=== PATIENT | male | born 1945 ===

== ENCOUNTER 2022-03-23 17:59 | Inpatient (IN) | payer MEDICARE ==
[2022-03-24 01:27] LABS: Basophils # (Auto) 0.1 K/mm3 (0.0-0.1); Basophils % (Auto) 0.6 % (0.0-1.8); Eosinophils # (Auto) 0.4 K/mm3 (0.0-0.4); Eosinophils % (Auto) 4.9 % (0.0-4.3); Hematocrit 32.3 % (35.5-45.6); Hemoglobin 10.6 gm/dl (11.8-15.2); Lymphocytes # (Auto) 1.5 K/mm3 (1.2-5.4); Lymphocytes % (Auto) 16.5 % (13.4-35.0); Mean Corpuscular HGB Conc 33 % (32-34); Mean Corpuscular Volume 93 fl (84-94); Monocytes # (Auto) 0.6 K/mm3 (0.0-0.8); Monocytes % (Auto) 6.9 % (0.0-7.3); Platelet Count 200 K/mm3 (140-440); Red Blood Count 3.49 M/mm3 (3.65-5.03); Red Cell Distribution Width 13.6 % (13.2-15.2)
[2022-03-24 01:58] LABS: Hepatitis B Surface Antigen Non-Reactive (Negative); Hepatitis C Virus Antibody Non-Reactive (NonReactive)
[2022-03-24 04:50] LABS: Albumin 3.2 g/dL (3.9-5); Calcium 8.1 mg/dL (8.4-10.2); Chol/HDL Ratio 3.42 %
--- NOTE | 2022-03-24 08:44 | History and Physical Report ---
History of Present Illness Date of examination: 03/24/22 Date of admission: 03/23/22 23:48 Chief complaint: Diabetes, HTN, Hyperlipidemia History of present illness: Patient is a 76 year old male with hx of Depression, CKD, CAD, dementia, GERD, hemiplegia as a late effect of CVA, insomnia, MRSA in the past, vascular dementia, and dementia presented from the jail due to hypotension. Further documentation shows that the patient had voiced opinion of killing himself. Per chart review the patient was tearful and crying throughout her initial assessment. Patient has a further history of diabetes mellitus, hyperlipidemia, hypertension. Were asked to assist in evaluation of the patient due to underlying medical condition. During my examination he is calm. He denies mentioning about suicidal ideation to anyone. He denies any chest pain nausea vomiting or diarrhea. He denies any fever. Past History Past Medical History: diabetes, hypertension, hyperlipidemia, stroke Past Surgical History: Other (Leg surgery) Social history: full code, other (Lives in a jail) Family history: other Medications and Allergies Allergies Allergy/AdvReac Type Severity Reaction Status Date / Time No Known Allergies Allergy Verified 03/24/22 00:00 Home Medications Medication Instructions Recorded Confirmed Last Taken Type Acetaminophen [Acetaminophen ER] 650 mg PO Q4HR PRN 03/24/22 03/24/22 Unknown History Aspirin EC [Halfprin EC] 81 mg PO QDAY 03/24/22 03/24/22 Unknown History Clopidogrel [Plavix] 75 mg PO QDAY 03/24/22 03/24/22 Unknown History Doxazosin [Cardura] 4 mg PO QDAY 03/24/22 03/24/22 Unknown History Ergocalciferol [Vitamin D2] 1 cap PO QWEEK 03/24/22 03/24/22 Unknown History Escitalopram Oxalate [Lexapro] 20 mg PO DAILY 03/24/22 03/24/22 Unknown History Hydralazine HCl 50 mg PO TID 03/24/22 03/24/22 Unknown History Insulin Aspart (Nf) [NovoLOG 0 units SQ AC PRN 03/24/22 03/24/22 Unknown History Flexpen] Insulin Detemir [Levemir Flextouch] 22 unit SQ HS 03/24/22 03/24/22 Unknown History Loperamide [Imodium] 2 mg PO Q6HR PRN 03/24/22 03/24/22 Unknown History Magnesium Hydroxide [Milk of 400 mg PO DAILY PRN 03/24/22 03/24/22 Unknown History Magnesia] Metoprolol Xl [Metoprolol 100 mg PO QDAY 03/24/22 03/24/22 Unknown History SUCCINATE ER TAB] Omeprazole 40 mg PO DAILY 03/24/22 03/24/22 Unknown History Ondansetron [Zofran Odt] 4 mg PO Q8HR PRN 03/24/22 03/24/22 Unknown History Polyethylene Glycol 3350 17 gm PO DAILY 03/24/22 03/24/22 Unknown History [Powderlax] amLODIPine [Norvasc] 10 mg PO DAILY 03/24/22 03/24/22 Unknown History cloNIDine-TTS PATCH [Catapres-Tts 1 patch TD Q7D 03/24/22 03/24/22 Unknown History 0.3mg Patch] Review of Systems All systems: negative Constitutional: no weight loss, no weight gain Cardiovascular: no chest pain, no orthopnea, no palpitations, no rapid/irregular heart beat, no claudication, no phlebitis, no leg edema Respiratory: no hemoptysis, no shortness of breath, no dyspnea on exertion, no pleurisy Gastrointestinal: no nausea, no diarrhea, no constipation, no change in bowel h abits Genitourinary Male: no discharge, no urinary hesitancy, no incontinence Musculoskeletal: no shooting arm pain, no low back pain, no shooting leg pain Integumentary: no pruritis, no sores, no jaundice Exam - Physical Exam Narrative exam: VITAL SIGNS: Reviewed. GENERAL: The patient appears normally developed, Vital signs as documented. HEAD: No signs of head trauma. EYES: Pupils are equal. Extraocular motions intact. EARS: Hearing grossly intact. MOUTH: Oropharynx is normal. NECK: No adenopathy, no JVD. CHEST: Chest with clear breath sounds bilaterally. No wheezes, rales, or rhonchi. CARDIAC: Regular rate and rhythm. S1 and S2, without murmurs, gallops, or rubs. VASCULAR: No Edema. Peripheral pulses normal and equal in all extremities. ABDOMEN: Soft, non tender and non distended. No rebound or guarding, and no masses palpated. Bowel Sounds normal. MUSCULOSKELETAL: Good range of motion of all major joints. Extremities without clubbing, cyanosis or edema. NEUROLOGIC EXAM: Alert and oriented x 3 No focal sensory or strength deficits. Speech normal. Follows commands. PSYCHIATRIC: Mood flat. SKIN: detail exam as documented in skin assessment - Constitutional Vitals: Temp Pulse Resp BP Pulse Ox 98.0 F 73 16 136/69 98 03/23/22 21:57 03/23/22 21:57 03/23/22 21:57 03/23/22 21:57 03/23/22 21:57 Results - Labs CBC & Chem 7: 03/24/22 00:47 03/24/22 00:47 Labs: Laboratory Last Values WBC 9.1 K/mm3 (4.5-11.0) 03/24/22 00:47 RBC 3.49 M/mm3 (3.65-5.03) L 03/24/22 00:47 Hgb 10.6 gm/dl (11.8-15.2) L 03/24/22 00:47 Hct 32.3 % (35.5-45.6) L 03/24/22 00:47 MCV 93 fl (84-94) 03/24/22 00:47 MCH 30 pg (28-32) 03/24/22 00:47 MCHC 33 % (32-34) 03/24/22 00:47 RDW 13.6 % (13.2-15.2) 03/24/22 00:47 Plt Count 200 K/mm3 (140-440) 03/24/22 00:47 Lymph % (Auto) 16.5 % (13.4-35.0) 03/24/22 00:47 [place] % (Auto) 6.9 % (0.0-7.3) 03/24/22 00:47 Eos % (Auto) 4.9 % (0.0-4.3) H 03/24/22 00:47 Baso % (Auto) 0.6 % (0.0-1.8) 03/24/22 00:47 Lymph # (Auto) 1.5 K/mm3 (1.2-5.4) 03/24/22 00:47 [place] # (Auto) 0.6 K/mm3 (0.0-0.8) 03/24/22 00:47 Eos # (Auto) 0.4 K/mm3 (0.0-0.4) 03/24/22 00:47 Baso # (Auto) 0.1 K/mm3 (0.0-0.1) 03/24/22 00:47 Seg Neutrophils % 71.1 % (40.0-70.0) H 03/24/22 00:47 Seg Neutrophils # 6.5 K/mm3 (1.8-7.7) 03/24/22 00:47 Sodium 140 mmol/L (137-145) 03/24/22 00:47 Potassium 4.5 mmol/L (3.6-5.0) 03/24/22 00:47 Chloride 104.2 mmol/L (98-107) 03/24/22 00:47 Carbon Dioxide 19 mmol/L (22-30) L 03/24/22 00:47 Anion Gap 21 mmol/L 03/24/22 00:47 BUN 58 mg/dL (9-20) H 03/24/22 00:47 Creatinine 4.5 mg/dL (0.8-1.3) H 03/24/22 00:47 Estimated GFR 13 ml/min 03/24/22 00:47 BUN/Creatinine Ratio 13 % 03/24/22 00:47 Glucose 255 mg/dL (75-100) H 03/24/22 00:47 POC Glucose 267 mg/dL (70-105) H 03/24/22 07:21 Hemoglobin A1c 6.5 % (4-6) H 03/24/22 00:47 Calcium 8.1 mg/dL (8.4-10.2) L 03/24/22 00:47 Total Bilirubin 0.20 mg/dL (0.1-1.2) 03/24/22 00:47 AST 11 units/L (5-40) 03/24/22 00:47 ALT 8 units/L (7-56) 03/24/22 00:47 Alkaline Phosphatase 60 units/L (35-129) 03/24/22 00:47 Total Protein 5.5 g/dL (6.3-8.2) L 03/24/22 00:47 Albumin 3.2 g/dL (3.9-5) L 03/24/22 00:47 Albumin/Globulin Ratio 1.4 % 03/24/22 00:47 Triglycerides 157 mg/dL (2-149) H 03/24/22 00:47 Cholesterol 96 mg/dL (50-199) 03/24/22 00:47 LDL Cholesterol Direct 38 mg/dL (50-130) L 03/24/22 00:47 HDL Cholesterol 28 mg/dL (40-59) L 03/24/22 00:47 Cholesterol/HDL Ratio 3.42 % 03/24/22 00:47 TSH 2.970 mlU/mL (0.270-4.200) 03/24/22 00:47 Hep Bs Antigen Non-reactive (Negative) 03/24/22 00:47 Hep B Core IgM Ab Non-reactive (NonReactive) 03/24/22 00:47 Hepatitis C Antibody Non-reactive (NonReactive) 03/24/22 00:47 Carpenter/IV: Voiding Method Incontinent Assessment and Plan Assessment and plan: Patient is a 76 year old male with hx of Depression, CKD, CAD, dementia, GERD, hemiplegia as a late effect of CVA, diabetes mellitus, insomnia, MRSA in the past, vascular dementia, and dementia presented from the jail due to hypotension. Further documentation shows that the patient had voiced opinion of killing himself. Per chart review the patient was tearful and crying throughout her initial assessment. Patient has a further history of diabetes mellitus, hyperlipidemia, hypertension. Were asked to assist in evaluation of the patient due to underlying medical condition. During my examination he is calm. He denies mentioning about suicidal ideation to anyone. He denies any chest pain nausea vomiting or diarrhea. He denies any fever. Patient is [place]ander-speaking Review of CT brain at outside facility shows no acute pathology review of CT abdomen and pelvis shows no acute pathology review of chest x-ray shows no acute pathology except for noted perihilar airspace disease most prominent in the left hilar region Hypertension Suicidal ideation Diabetes CAD GERD CKD Depression Prior history of stroke Plan Continue patient on appropriate home medication including Plavix Protonix metoprolol amlodipine and aspirin. Monitor H&H periodicall Continue diabetic management and monitor blood sugar I have resumed his home blood sugar medications and have also included sliding scale coverage as his blood sugars over 200 at this time. Psych related management per the psych team Fall precautions PPI DVT and GI prophylaxis We will continue to follow with your and his new information becomes available more therapeutic or diagnostic changes more diagnostic or therapeutic changes may need to be implemented Advance Directives: Yes Plan of care discussed with patient/family: Yes
[2022-03-24] MEDS ORDERED: MAGNESIUM HYDROXIDE (MOM) ORAL LIQD UDC PO PRN (09:00)
[2022-03-24] MEDS ORDERED: ONDANSETRON 4 MG ODT TAB PO PRN (09:00)
[2022-03-24] MEDS ORDERED: DEXTROSE 50% IN WATER (25GM) 50 ML SYRINGE IV PRN (09:30)
[2022-03-24] MEDS ORDERED: NON-FORMULARY EACH (Omeprazole [Omeprazole] 40 MG Capsule.Dr) PO SCH (10:00)
[2022-03-24] MEDS ORDERED: PANTOPRAZOLE 40 MG TAB PO SCH (10:00)
[2022-03-24] MEDS: POLYETHYLENE GLYCOL 3350 17 GM POWDER PO SCH (10:32)
[2022-03-24] MEDS: METOPROLOL SUCCINATE XL 100 MG TAB PO SCH (10:33)
[2022-03-24] MEDS: ASPIRIN EC 81 MG TAB PO SCH (10:33)
[2022-03-24] MEDS: DOXAZOSIN 4 MG TAB PO SCH (10:33)
[2022-03-24] MEDS: CLOPIDOGREL 75 MG TAB PO SCH (10:33)
[2022-03-24] MEDS: amLODIPine 10 MG TAB PO SCH (10:35)
[2022-03-24] MEDS: PANTOPRAZOLE 40 MG TAB PO SCH (10:36)
[2022-03-24] MEDS ORDERED: NON-FORMULARY EACH (Insulin Aspart (Nf) 100 UNIT/ML Insuln.Pen) SQ PRN (11:48)
[2022-03-24] MEDS ORDERED: NON-FORMULARY EACH (Acetaminophen [Acetaminophen Er] 650 MG Tablet.Er) PO PRN (11:48)
[2022-03-24] MEDS ORDERED: NON-FORMULARY EACH (Escitalopram Oxalate [Lexapro] 20 MG Tablet) PO SCH (12:00)
[2022-03-24] MEDS: INSULIN LISPRO 100 UNIT/ML SUB-Q SCH ×3 (12:47→21:43)
[2022-03-24] MEDS ORDERED: LOPERAMIDE 2 MG CAP PO PRN (14:00)
[2022-03-24] MEDS ORDERED: NON-FORMULARY EACH (Hydralazine Hcl [Hydralazine Hcl] 50 MG Tablet) PO SCH (14:00)
[2022-03-24] MEDS ORDERED: ACETAMINOPHEN 325 MG TAB PO PRN (14:00)
[2022-03-24] MEDS: ESCITALOPRAM 10 MG TAB PO SCH (14:29)
[2022-03-24] MEDS: hydrALAZINE 25 MG TAB PO SCH ×2 (14:29→20:35)
[2022-03-24] MEDS: INSULIN GLARGINE 100 UNITS/ML SUB-Q SCH (21:42)
[2022-03-24] MEDS ORDERED: NON-FORMULARY EACH (Insulin Detemir [Levemir Flextouch] 100 UNIT/ML Insuln.Pen) SQ SCH ×2 (22:00)
--- NOTE | 2022-03-24 22:20 | History and Physical Report ---
GP History & Physical - History of Present Illness Date of admission: 03/23/22 Date of Examination: 03/24/22 Reason for Admission: Danger to self, Failure of Outpatient Treatment, Severe anxiety/depression History of Present Illness: HPI: Patient was taken to the ED from half-way due to hypertension and made a comment to nurse and EMS that he wanted to kill himself. He told the doctor in ED that is unhappy where he is living. The patient was seen today. He is lying in bed awake. He is calm. He appears withdrawn. When asked was he depressed, the patient nodded his head. He denies SI/HI or hallucinations. PSYCHIATRIC HISTORY: Unable to assess PAST MEDICAL HISTORY: None reported or document Family Psychiatric History: None reported or documented SOCIAL HISTORY Unable to obtain REVIEW OF SYSTEMS Unable to obtain MENTAL STATUS EXAMINATION Unable to obtain Assessment (1) Major Depressive Disorder Current Visit: Yes Status: Acute TREATMENT PLAN Patient admitted for inpatient psychiatric evaluation, medication adjustment and close monitoring The patient's behavior, mood, sleep and appetite will be closely monitored. Patient enrolled in individual and group therapeutic sessions and encouraged to attend. Patient provided with a safe and structured environment. Patient's physical health needs will be addressed by the Hospitalist. Ho spitalist Consulted Labs including CBC, CMP, Lipid profile and Hemoglobin A1C levels ordered for baseline reference Restarted home meds Social Assessment will be completed and the Lock Plater will work with patient and family to ensure a suitable and safe disposition Medication adjustment will be made as clinically indicated Usual Wellness [employer]/Preservation: - Start Trazodone 50 mg po QHS & 50 mg po QHS PRN between 10 PM & 2 AM for insomnia - Start Melatonin 5 mg po QHS to promote circadian rhythm - Start [place]-3 for brain health, reduce impulsivity, and as adjunctive treatment for mood disorder, continue upon discharge given overall benefits. - Start B1 prophylaxis with 200 mg po for 5 days The patient agreed on the treatment plan, understood the risk, benefit, alternative treatment, potential consequence of no treatment, and gave informed consent. Estimated days: 7 Post hospital care: primary care provider, psychiatric provider Case staffed with Dr. Damon Legal Status: Voluntary Reaction to Hospitalization: Accepting Medications and Allergies Allergies Allergy/AdvReac Type Severity Reaction Status Date / Time No Known Allergies Allergy Verified 03/24/22 00:00 Home Medications Medication Instructions Recorded Confirmed Last Taken Type Acetaminophen [Acetaminophen ER] 650 mg PO Q4HR PRN 03/24/22 03/24/22 Unknown History Aspirin EC [Halfprin EC] 81 mg PO QDAY 03/24/22 03/24/22 Unknown History Clopidogrel [Plavix] 75 mg PO QDAY 03/24/22 03/24/22 Unknown History Doxazosin [Cardura] 4 mg PO QDAY 03/24/22 03/24/22 Unknown History Ergocalciferol [Vitamin D2] 1 cap PO QWEEK 03/24/22 03/24/22 Unknown History Escitalopram Oxalate [Lexapro] 20 mg PO DAILY 03/24/22 03/24/22 Unknown History Hydralazine HCl 50 mg PO TID 03/24/22 03/24/22 Unknown History Insulin Aspart (Nf) [NovoLOG 0 units SQ AC PRN 03/24/22 03/24/22 Unknown History Flexpen] Insulin Detemir [Levemir Flextouch] 22 unit SQ HS 03/24/22 03/24/22 Unknown History Loperamide [Imodium] 2 mg PO Q6HR PRN 03/24/22 03/24/22 Unknown History Magnesium Hydroxide [Milk of 400 mg PO DAILY PRN 03/24/22 03/24/22 Unknown History Magnesia] Metoprolol Xl [Metoprolol 100 mg PO QDAY 03/24/22 03/24/22 Unknown History SUCCINATE ER TAB] Omeprazole 40 mg PO DAILY 03/24/22 03/24/22 Unknown History Ondansetron [Zofran Odt] 4 mg PO Q8HR PRN 03/24/22 03/24/22 Unknown History Polyethylene Glycol 3350 17 gm PO DAILY 03/24/22 03/24/22 Unknown History [Powderlax] amLODIPine [Norvasc] 10 mg PO DAILY 03/24/22 03/24/22 Unknown History cloNIDine-TTS PATCH [Catapres-Tts 1 patch TD Q7D 03/24/22 03/24/22 Unknown History 0.3mg Patch] Active Meds: Active Medications Acetaminophen (Acetaminophen 325 Mg Tab) 650 mg PO Q4H PRN PRN Reason: Pain, Moderate (4-6) Amlodipine Besylate (Amlodipine 10 Mg Tab) 10 mg PO DAILY LIBERTAD Last Admin: 03/24/22 10:35 Dose: 10 mg Aspirin (Aspirin Ec 81 Mg Tab) 81 mg PO QDAY ON LICENSE OF [facility] Last Admin: 03/24/22 10:33 Dose: 81 mg Clonidine HCl (Clonidine Tts 0.3 Mg/24 Hr Patch) 0.3 mg TD Sa ON LICENSE OF [facility] Clopidogrel Bisulfate (Clopidogrel 75 Mg Tab) 75 mg PO QDAY ON LICENSE OF [facility] Last Admin: 03/24/22 10:33 Dose: 75 mg Dextrose (Dextrose 50% In Water (25gm) 50 Ml Syringe) 50 ml IV Q30MIN PRN; Protocol PRN Reason: Hypoglycemia Doxazosin Mesylate (Doxazosin 4 Mg Tab) 4 mg PO QDAY ON LICENSE OF [facility] Last Admin: 03/24/22 10:33 Dose: 4 mg Ergocalciferol (Ergocalciferol (Vit D2) 50,000 Unit Cap) 50,000 unit PO [facility] Escitalopram Oxalate (Escitalopram 10 Mg Tab) 20 mg PO DAILY ON LICENSE OF [facility] Last Admin: 03/24/22 14:29 Dose: 20 mg Hydralazine HCl (Hydralazine 25 Mg Tab) 50 mg PO TID ON LICENSE OF [facility] Last Admin: 03/24/22 20:35 Dose: 50 mg Insulin Glargine (Insulin Glargine 100 Units/Ml) 22 units SUB-Q QHS ON LICENSE OF [facility] Last Admin: 03/24/22 21:42 Dose: 22 units Insulin Human Lispro (Insulin Lispro 100 Unit/Ml) 0 unit SUB-Q ACHS ON LICENSE OF [facility]; Protocol Last Admin: 03/24/22 21:43 Dose: Not Given Loperamide HCl (Loperamide 2 Mg Cap) 2 mg PO Q6H PRN PRN Reason: Diarrhea Magnesium Hydroxide (Magnesium Hydroxide (Mom) Oral Liqd Udc) 30 ml PO DAILY PRN PRN Reason: Constipation Metoprolol Succinate (Metoprolol Succinate Xl 100 Mg Tab) 100 mg PO QDAY ON LICENSE OF [facility] Last Admin: 03/24/22 10:33 Dose: 100 mg Ondansetron HCl (Ondansetron 4 Mg Odt Tab) 4 mg PO Q8H PRN PRN Reason: Nausea Pantoprazole Sodium (Pantoprazole 40 Mg Tab) 40 mg PO QDAC ON LICENSE OF [facility] Last Admin: 03/24/22 10:36 Dose: 40 mg Polyethylene Glycol (Polyethylene Glycol 3350 17 Gm Powder) 17 gm PO DAILY ON LICENSE OF [facility] Last Admin: 03/24/22 10:32 Dose: 17 gm Results - Results Labs/Vitals: Laboratory Last Values WBC 9.1 K/mm3 (4.5-11.0) 03/24/22 00:47 RBC 3.49 M/mm3 (3.65-5.03) L 03/24/22 00:47 Hgb 10.6 gm/dl (11.8-15.2) L 03/24/22 00:47 Hct 32.3 % (35.5-45.6) L 03/24/22 00:47 MCV 93 fl (84-94) 03/24/22 00:47 MCH 30 pg (28-32) 03/24/22 00:47 MCHC 33 % (32-34) 03/24/22 00:47 RDW 13.6 % (13.2-15.2) 03/24/22 00:47 Plt Count 200 K/mm3 (140-440) 03/24/22 00:47 Lymph % (Auto) 16.5 % (13.4-35.0) 03/24/22 00:47 [place] % (Auto) 6.9 % (0.0-7.3) 03/24/22 00:47 Eos % (Auto) 4.9 % (0.0-4.3) H 03/24/22 00:47 Baso % (Auto) 0.6 % (0.0-1.8) 03/24/22 00:47 Lymph # (Auto) 1.5 K/mm3 (1.2-5.4) 03/24/22 00:47 [place] # (Auto) 0.6 K/mm3 (0.0-0.8) 03/24/22 00:47 Eos # (Auto) 0.4 K/mm3 (0.0-0.4) 03/24/22 00:47 Baso # (Auto) 0.1 K/mm3 (0.0-0.1) 03/24/22 00:47 Seg Neutrophils % 71.1 % (40.0-70.0) H 03/24/22 00:47 Seg Neutrophils # 6.5 K/mm3 (1.8-7.7) 03/24/22 00:47 Sodium 140 mmol/L (137-145) 03/24/22 00:47 Potassium 4.5 mmol/L (3.6-5.0) 03/24/22 00:47 Chloride 104.2 mmol/L (98-107) 03/24/22 00:47 Carbon Dioxide 19 mmol/L (22-30) L 03/24/22 00:47 Anion Gap 21 mmol/L 03/24/22 00:47 BUN 58 mg/dL (9-20) H 03/24/22 00:47 Creatinine 4.5 mg/dL (0.8-1.3) H 03/24/22 00:47 Estimated GFR 13 ml/min 03/24/22 00:47 BUN/Creatinine Ratio 13 % 03/24/22 00:47 Glucose 255 mg/dL (75-100) H 03/24/22 00:47 POC Glucose 205 mg/dL (70-105) H 03/24/22 16:21 Hemoglobin A1c 6.5 % (4-6) H 03/24/22 00:47 Calcium 8.1 mg/dL (8.4-10.2) L 03/24/22 00:47 Total Bilirubin 0.20 mg/dL (0.1-1.2) 03/24/22 00:47 AST 11 units/L (5-40) 03/24/22 00:47 ALT 8 units/L (7-56) 03/24/22 00:47 Alkaline Phosphatase 60 units/L (35-129) 03/24/22 00:47 Total Protein 5.5 g/dL (6.3-8.2) L 03/24/22 00:47 Albumin 3.2 g/dL (3.9-5) L 03/24/22 00:47 Albumin/Globulin Ratio 1.4 % 03/24/22 00:47 Triglycerides 157 mg/dL (2-149) H 03/24/22 00:47 Cholesterol 96 mg/dL (50-199) 03/24/22 00:47 LDL Cholesterol Direct 38 mg/dL (50-130) L 03/24/22 00:47 HDL Cholesterol 28 mg/dL (40-59) L 03/24/22 00:47 Cholesterol/HDL Ratio 3.42 % 03/24/22 00:47 TSH 2.970 mlU/mL (0.270-4.200) 04 00:47 Hep Bs Antigen Non-reactive (Negative) 03/24/22 00:47 Hep B Core IgM Ab Non-reactive (NonReactive) 03/24/22 00:47 Hepatitis C Antibody Non-reactive (NonReactive) 03/24/22 00:47 Last Vital Signs Temp 97.6 F 03/24/22 09:56 Pulse 66 03/24/22 20:35 Resp 18 03/24/22 09:56 BP 154/71 03/24/22 20:35 Pulse Ox 97 03/24/22 14:23 Physical Examination - Constitutional Vitals: Vital Signs Temp Pulse Resp BP Pulse Ox 97.6 F 66 18 154/71 97 03/24/22 09:56 03/24/22 20:35 03/24/22 09:56 03/24/22 20:35 03/24/22 14:23 Temperature -Last 24 Hours Temperature 97.6 F Mental Status Exam - Vital signs Last Vital Signs Temp 97.6 F 03/24/22 09:56 Pulse 66 03/24/22 20:35 Resp 18 03/24/22 09:56 BP 154/71 03/24/22 20:35 Pulse Ox 97 03/24/22 14:23 Physician Certification - Certification Statement Physician Certification Statement: This is an acknowledgement statement that ALINA SOMMER is a 76 year old M who requires inpatient psychiatric admission for treatment which could reasonably be expected to improve the patient's condition for Estimated period of time patient will need to remain in the hospital: [ ] Plan for post-hospital care: [ ]
[2022-03-25] MEDS: INSULIN LISPRO 100 UNIT/ML SUB-Q SCH ×4 (07:46→21:30)
[2022-03-25] MEDS: PANTOPRAZOLE 40 MG TAB PO SCH (08:30)
[2022-03-25] MEDS: hydrALAZINE 25 MG TAB PO SCH ×3 (08:30→20:23)
[2022-03-25] MEDS ORDERED: ERGOCALCIFEROL (VIT D2) 50,000 UNIT CAP PO SCH (10:00)
[2022-03-25] MEDS: amLODIPine 10 MG TAB PO SCH (10:28)
[2022-03-25] MEDS: ASPIRIN EC 81 MG TAB PO SCH (10:28)
[2022-03-25] MEDS: ESCITALOPRAM 10 MG TAB PO SCH (10:28)
[2022-03-25] MEDS: CLOPIDOGREL 75 MG TAB PO SCH (10:28)
[2022-03-25] MEDS: POLYETHYLENE GLYCOL 3350 17 GM POWDER PO SCH (10:28)
[2022-03-25] MEDS: DOXAZOSIN 4 MG TAB PO SCH (10:28)
[2022-03-25] MEDS: METOPROLOL SUCCINATE XL 100 MG TAB PO SCH (10:28)
--- NOTE | 2022-03-25 11:14 | Progress Note ---
Assessment and Plan Assessment and plan: Patient is a 76 year old male with hx of Depression, CKD, CAD, dementia, GERD, hemiplegia as a late effect of CVA, diabetes mellitus, insomnia, MRSA in the past, vascular dementia, and dementia presented from the [facility] due to hypotension. Further documentation shows that the patient had voiced opinion of killing himself. Per chart review the patient was tearful and crying throughout her initial assessment. Patient has a further history of diabetes mellitus, hyperlipidemia, hypertension. Were asked to assist in evaluation of the patient due to underlying medical condition. During my examination he is calm. He denies mentioning about suicidal ideation to anyone. He denies any chest pain nausea vomiting or diarrhea. He denies any fever. Patient is Maori-speaking Review of CT brain at outside facility shows no acute pathology review of CT abdomen and pelvis shows no acute pathology review of chest x-ray shows no acute pathology except for noted perihilar airspace disease most prominent in the left hilar region Hypertension Suicidal ideation Diabetes CAD GERD CKD Depression Prior history of stroke Plan 03/25: Patient seen and examined, clinically stable. Check H/H in am Continue patient on appropriate home medication including Plavix Protonix metoprolol amlodipine and aspirin. Monitor H&H periodically Continue diabetic management and monitor blood sugar I have resumed his home blood sugar medications and have also included sliding scale coverage as his blood sugars over 200 at this time. Psych related management per the psych team Fall precautions PPI DVT and GI prophylaxis We will continue to follow with your and his new information becomes available more therapeutic or diagnostic changes more diagnostic or therapeutic changes may need to be implemented History Interval history: Patient seen and examined, resting comfortable Hospitalist Physical - Physical exam Narrative exam: VITAL SIGNS: Reviewed. GENERAL: The patient appears normally developed, Vital signs as documented. HEAD: No signs of head trauma. EYES: Pupils are equal. Extraocular motions intact. EARS: Hearing grossly intact. MOUTH: Oropharynx is normal. NECK: No adenopathy, no JVD. CHEST: Chest with clear breath sounds bilaterally. No wheezes, rales, or rhon chi. CARDIAC: Regular rate and rhythm. S1 and S2, without murmurs, gallops, or rubs. VASCULAR: No Edema. Peripheral pulses normal and equal in all extremities. ABDOMEN: Soft, non tender and non distended. No rebound or guarding, and no masses palpated. Bowel Sounds normal. MUSCULOSKELETAL: Good range of motion of all major joints. Extremities without clubbing, cyanosis or edema. NEUROLOGIC EXAM: Alert and oriented x 3 No focal sensory or strength deficits. Speech normal. Follows commands. PSYCHIATRIC: Mood flat. SKIN: detail exam as documented in skin assessment - Constitutional Vitals: Temp Pulse Resp BP Pulse Ox 97.5 F L 65 16 154/74 96 03/25/22 08:16 03/25/22 10:28 03/25/22 08:16 03/25/22 10:28 03/25/22 10:25 Results - Labs CBC & Chem 7: 03/24/22 00:47 03/24/22 00:47 Labs: Laboratory Last Values WBC 9.1 K/mm3 (4.5-11.0) 03/24/22 00:47 RBC 3.49 M/mm3 (3.65-5.03) L 03/24/22 00:47 Hgb 10.6 gm/dl (11.8-15.2) L 03/24/22 00:47 Hct 32.3 % (35.5-45.6) L 03/24/22 00:47 MCV 93 fl (84-94) 03/24/22 00:47 MCH 30 pg (28-32) 03/24/22 00:47 MCHC 33 % (32-34) 03/24/22 00:47 RDW 13.6 % (13.2-15.2) 03/24/22 00:47 Plt Count 200 K/mm3 (140-440) 03/24/22 00:47 Lymph % (Auto) 16.5 % (13.4-35.0) 03/24/22 00:47 [place] % (Auto) 6.9 % (0.0-7.3) 03/24/22 00:47 Eos % (Auto) 4.9 % (0.0-4.3) H 03/24/22 00:47 Baso % (Auto) 0.6 % (0.0-1.8) 03/24/22 00:47 Lymph # (Auto) 1.5 K/mm3 (1.2-5.4) 03/24/22 00:47 [place] # (Auto) 0.6 K/mm3 (0.0-0.8) 03/24/22 00:47 Eos # (Auto) 0.4 K/mm3 (0.0-0.4) 03/24/22 00:47 Baso # (Auto) 0.1 K/mm3 (0.0-0.1) 03/24/22 00:47 Seg Neutrophils % 71.1 % (40.0-70.0) H 03/24/22 00:47 Seg Neutrophils # 6.5 K/mm3 (1.8-7.7) 03/24/22 00:47 Sodium 140 mmol/L (137-145) 03/24/22 00:47 Potassium 4.5 mmol/L (3.6-5.0) 03/24/22 00:47 Chloride 104.2 mmol/L (98-107) 03/24/22 00:47 Carbon Dioxide 19 mmol/L (22-30) L 03/24/22 00:47 Anion Gap 21 mmol/L 03/24/22 00:47 BUN 58 mg/dL (9-20) H 03/24/22 00:47 Creatinine 4.5 mg/dL (0.8-1.3) H 03/24/22 00:47 Estimated GFR 13 ml/min 03/24/22 00:47 BUN/Creatinine Ratio 13 % 03/24/22 00:47 Glucose 255 mg/dL (75-100) H 03/24/22 00:47 POC Glucose 147 mg/dL (70-105) H 03/25/22 06:22 Hemoglobin A1c 6.5 % (4-6) H 03/24/22 00:47 Calcium 8.1 mg/dL (8.4-10.2) L 03/24/22 00:47 Total Bilirubin 0.20 mg/dL (0.1-1.2) 03/24/22 00:47 AST 11 units/L (5-40) 03/24/22 00:47 ALT 8 units/L (7-56) 03/24/22 00:47 Alkaline Phosphatase 60 units/L (35-129) 03/24/22 00:47 Total Protein 5.5 g/dL (6.3-8.2) L 03/24/22 00:47 Albumin 3.2 g/dL (3.9-5) L 03/24/22 00:47 Albumin/Globulin Ratio 1.4 % 03/24/22 00:47 Triglycerides 157 mg/dL (2-149) H 03/24/22 00:47 Cholesterol 96 mg/dL (50-199) 03/24/22 00:47 LDL Cholesterol Direct 38 mg/dL (50-130) L 03/24/22 00:47 HDL Cholesterol 28 mg/dL (40-59) L 03/24/22 00:47 Cholesterol/HDL Ratio 3.42 % 03/24/22 00:47 TSH 2.970 mlU/mL (0.270-4.200) 03/24/22 00:47 Hep Bs Antigen Non-reactive (Negative) 03/24/22 00:47 Hep B Core IgM Ab Non-reactive (NonReactive) 03/24/22 00:47 Hepatitis C Antibody Non-reactive (NonReactive) 03/24/22 00:47 Carpenter/IV: Voiding Method Incontinent Active Medications - Current Medications Current Medications: Generic Name Dose Route Start Last Admin Trade Name Freq PRN Reason Stop Dose Admin Acetaminophen 650 mg 03/24/22 14:00 Acetaminophen 325 Mg Tab PO Q4H PRN Pain, Moderate (4-6) Amlodipine Besylate 10 mg 03/24/22 10:00 03/25/22 10:28 Amlodipine 10 Mg Tab PO 10 mg DAILY LIBERTAD Administration Aspirin 81 mg 03/24/22 10:00 03/25/22 10:28 Aspirin Ec 81 Mg Tab PO 81 mg QDAY [facility]ERT[facility] Administration Clonidine HCl 0.3 mg 03/28/22 17:55 Clonidine Tts 0.3 Mg/24 Hr Patch TD Sa [facility] Clopidogrel Bisulfate 75 mg 03/24/22 10:00 03/25/22 10:28 Clopidogrel 75 Mg Tab PO 75 mg QDAY [facility] Administration Dextrose 50 ml 03/24/22 09:30 Dextrose 50% In Water (25gm) 50 Ml Syringe IV Q30MIN PRN Hypoglycemia Protocol Doxazosin Mesylate 4 mg 03/24/22 10:00 03/25/22 10:28 Doxazosin 4 Mg Tab PO 4 mg QDAY [facility] Administration Ergocalciferol 50,000 unit 03/25/22 10:00 03/25/22 10:28 Ergocalciferol (Vit D2) 50,000 Unit Cap PO 50,000 unit We [facility]ERT[facility] Administration Escitalopram Oxalate 20 mg 03/24/22 14:00 03/25/22 10:28 Escitalopram 10 Mg Tab PO 20 mg DAILY [facility]ERT[facility] Administration Hydralazine HCl 50 mg 03/24/22 14:00 03/25/22 08:30 Hydralazine 25 Mg Tab PO 50 mg TID [facility]ERT[facility] Administration Insulin Glargine 22 units 03/24/22 22:00 03/24/22 21:42 Insulin Glargine 100 Units/Ml SUB-Q 22 units QHS [facility]ERT[facility] Administration Insulin Human Lispro 0 unit 03/24/22 11:30 03/25/22 07:46 Insulin Lispro 100 Unit/Ml SUB-Q Not Given ACHS [facility] Protocol Loperamide HCl 2 mg 03/24/22 14:00 Loperamide 2 Mg Cap PO Q6H PRN Diarrhea Magnesium Hydroxide 30 ml 03/24/22 09:00 Magnesium Hydroxide (Mom) Oral Liqd Udc PO DAILY PRN Constipation Metoprolol Succinate 100 mg 03/24/22 10:00 03/25/22 10:28 Metoprolol Succinate Xl 100 Mg Tab PO 100 mg QDAY [facility] Administration Ondansetron HCl 4 mg 03/24/22 09:00 Ondansetron 4 Mg Odt Tab PO Q8H PRN Nausea Pantoprazole Sodium 40 mg 03/24/22 10:00 03/25/22 08:30 Pantoprazole 40 Mg Tab PO 40 mg QDAC [facility] Administration Polyethylene Glycol 17 gm 03/24/22 10:00 03/25/22 10:28 Polyethylene Glycol 3350 17 Gm Powder PO 17 gm DAILY [facility]ERT[facility] Administration
--- NOTE | 2022-03-25 11:43 | Progress Note ---
Subjective - Reason for Consult Consult date: 03/25/22 Reason for consult: depression - Chief Complaint Chief complaint: The patient was seen today. He is calm and cooperative. He says he feels okay. The patient says he is hungry. He also verbalizes feeling depressed. He denies SI/HI. Attempted language line several times, kept asking me for account number after putting it in. Will attempt later. REVIEW OF SYSTEMS Unable to obtain MENTAL STATUS EXAMINATION Unable to obtain Assessment (1) Major Depressive Disorder Current Visit: Yes Status: Acute TREATMENT PLAN Patient admitted for inpatient psychiatric evaluation, medication adjustment and close monitoring The patient's behavior, mood, sleep and appetite will be closely monitored. Patient enrolled in individual and group therapeutic sessions and encouraged to attend. Patient provided with a safe and structured environment. Patient's physical health needs will be addressed by the Hospitalist. Hospitalist Consulted Labs including CBC, CMP, Lipid profile and Hemoglobin A1C levels ordered for baseline reference Start Zoloft 25mg po daily Social Assessment will be completed and the [employer] will work with patient and family to ensure a suitable and safe disposition Medication adjustment will be made as clinically indicated Usual Wellness Sabianism/Preservation: - Start Trazodone 50 mg po QHS & 50 mg po QHS PRN between 10 PM & 2 AM for insomnia - Start Melatonin 5 mg po QHS to promote circadian rhythm - Start [place]-3 for brain health, reduce impulsivity, and as adjunctive treatment for mood disorder, continue upon discharge given overall benefits. - Start B1 prophylaxis with 200 mg po for 5 days The patient agreed on the treatment plan, understood the risk, benefit, alternative treatment, potential consequence of no treatment, and gave informed consent. Mental Status Exam - Vital signs Last Vital Signs Temp 97.5 F L 03/25/22 08:16 Pulse 65 03/25/22 10:28 Resp 16 03/25/22 08:16 BP 154/74 03/25/22 10:28 Pulse Ox 96 03/25/22 10:25
[2022-03-25] MEDS ORDERED: SERTRALINE 25 MG TAB PO SCH (12:00)
[2022-03-25] MEDS: INSULIN GLARGINE 100 UNITS/ML SUB-Q SCH (21:29)
--- NOTE | 2022-03-26 07:24 | Progress Note ---
Assessment and Plan Assessment and plan: Patient is a 76 year old male with hx of Depression, CKD, CAD, dementia, GERD, hemiplegia as a late effect of CVA, diabetes mellitus, insomnia, MRSA in the past, vascular dementia, and dementia [facility]. Further documentation shows that the patient had voiced opinion of killing himself. Per chart review the patient was tearful and crying throughout her initial assessment. Patient has a further history of diabetes mellitus, hyperlipidemia, hypertension. Were asked to assist in evaluation of the patient due to underlying medical condition. During my examination he is calm. He denies mentioning about suicidal ideation to anyone. He denies any chest pain nausea vomiting or diarrhea. He denies any fever. Patient is Korean-speaking Review of CT brain at outside facility shows no acute pathology review of CT abdomen and pelvis shows no acute pathology review of chest x-ray shows no acute pathology except for noted perihilar airspace disease most prominent in the left hilar region Hypertension Suicidal ideation Diabetes CAD GERD CKD Depression Prior history of stroke Plan 03/25: Patient seen and examined, clinically stable. Check H/H in am 03/26: Still awaiting H/H. continue to monitor. continue plavix and protonix Continue patient on appropriate home medication including Plavix Protonix metoprolol amlodipine and aspirin. Monitor H&H periodically Continue diabetic management and monitor blood sugar I have resumed his home blood sugar medications and have also included sliding scale coverage as his blood sugars over 200 at this time. Psych related management per the psych team Fall precautions PPI DVT and GI prophylaxis We will continue to follow with your and his new information becomes available more therapeutic or diagnostic changes more diagnostic or therapeutic changes may need to be implemented History Interval history: Patient seen and examined, resting comfortable, lying in bed, Hospitalist Physical - Physical exam Narrative exam: VITAL SIGNS: Reviewed. GENERAL: The patient appears normally developed, left facial drop, chronic Vital signs as documented. HEAD: No signs of head trauma. EYES: Pupils are equal. Extraocular motions intact. EARS: Hearing grossly intact. MOUTH: Oropharynx is normal. NECK: No adenopathy, no JVD. CHEST: Chest with clear breath sounds bilaterally. No wheezes, rales, or rhonchi. CARDIAC: Regular rate and rhythm. S1 and S2, without murmurs, gallops, or rubs. VASCULAR: No Edema. Peripheral pulses normal and equal in all extremities. ABDOMEN: Soft, non tender and non distended. No rebound or guarding, and no masses palpated. Bowel Sounds normal. MUSCULOSKELETAL: Good range of motion of all major joints. Extremities without clubbing, cyanosis or edema. NEUROLOGIC EXAM: Alert and oriented x 3 No focal sensory or strength deficits. Speech normal. Follows commands. PSYCHIATRIC: Mood flat. SKIN: detail exam as documented in skin assessment - Constitutional Vitals: Temp Pulse Resp BP Pulse Ox 97.5 F L 57 L 12 127/63 96 03/25/22 20:00 03/25/22 20:23 03/25/22 20:00 03/25/22 20:23 03/25/22 20:00 Results - Labs CBC & Chem 7: 03/24/22 00:47 03/24/22 00:47 Labs: Laboratory Last Values WBC 9.1 K/mm3 (4.5-11.0) 03/24/22 00:47 RBC 3.49 M/mm3 (3.65-5.03) L 03/24/22 00:47 Hgb 10.6 gm/dl (11.8-15.2) L 03/24/22 00:47 Hct 32.3 % (35.5-45.6) L 03/24/22 00:47 MCV 93 fl (84-94) 03/24/22 00:47 MCH 30 pg (28-32) 03/24/22 00:47 MCHC 33 % (32-34) 03/24/22 00:47 RDW 13.6 % (13.2-15.2) 03/24/22 00:47 Plt Count 200 K/mm3 (140-440) 03/24/22 00:47 Lymph % (Auto) 16.5 % (13.4-35.0) 03/24/22 00:47 [place] % (Auto) 6.9 % (0.0-7.3) 03/24/22 00:47 Eos % (Auto) 4.9 % (0.0-4.3) H 03/24/22 00:47 Baso % (Auto) 0.6 % (0.0-1.8) 03/24/22 00:47 Lymph # (Auto) 1.5 K/mm3 (1.2-5.4) 03/24/22 00:47 [place] # (Auto) 0.6 K/mm3 (0.0-0.8) 03/24/22 00:47 Eos # (Auto) 0.4 K/mm3 (0.0-0.4) 03/24/22 00:47 Baso # (Auto) 0.1 K/mm3 (0.0-0.1) 03/24/22 00:47 Seg Neutrophils % 71.1 % (40.0-70.0) H 03/24/22 00:47 Seg Neutrophils # 6.5 K/mm3 (1.8-7.7) 03/24/22 00:47 Sodium 140 mmol/L (137-145) 03/24/22 00:47 Potassium 4.5 mmol/L (3.6-5.0) 03/24/22 00:47 Chloride 104.2 mmol/L (98-107) 03/24/22 00:47 Carbon Dioxide 19 mmol/L (22-30) L 03/24/22 00:47 Anion Gap 21 mmol/L 03/24/22 00:47 BUN 58 mg/dL (9-20) H 03/24/22 00:47 Creatinine 4.5 mg/dL (0.8-1.3) H 03/24/22 00:47 Estimated GFR 13 ml/min 03/24/22 00:47 BUN/Creatinine Ratio 13 % 03/24/22 00:47 Glucose 255 mg/dL (75-100) H 03/24/22 00:47 POC Glucose 85 mg/dL (70-105) 03/26/22 06:20 Hemoglobin A1c 6.5 % (4-6) H 03/24/22 00:47 Calcium 8.1 mg/dL (8.4-10.2) L 03/24/22 00:47 Total Bilirubin 0.20 mg/dL (0.1-1.2) 03/24/22 00:47 AST 11 units/L (5-40) 03/24/22 00:47 ALT 8 units/L (7-56) 03/24/22 00:47 Alkaline Phosphatase 60 units/L (35-129) 03/24/22 00:47 Total Protein 5.5 g/dL (6.3-8.2) L 03/24/22 00:47 Albumin 3.2 g/dL (3.9-5) L 03/24/22 00:47 Albumin/Globulin Ratio 1.4 % 03/24/22 00:47 Triglycerides 157 mg/dL (2-149) H 03/24/22 00:47 Cholesterol 96 mg/dL (50-199) 03/24/22 00:47 LDL Cholesterol Direct 38 mg/dL (50-130) L 03/24/22 00:47 HDL Cholesterol 28 mg/dL (40-59) L 03/24/22 00:47 Cholesterol/HDL Ratio 3.42 % 03/24/22 00:47 TSH 2.970 mlU/mL (0.270-4.200) 03/24/22 00:47 Hep Bs Antigen Non-reactive (Negative) 03/24/22 00:47 Hep B Core IgM Ab Non-reactive (NonReactive) 03/24/22 00:47 Hepatitis C Antibody Non-reactive (NonReactive) 03/24/22 00:47 Carpenter/IV: Voiding Method Diaper Active Medications - Current Medications Current Medications: Generic Name Dose Route Start Last Admin Trade Name Freq PRN Reason Stop Dose Admin Acetaminophen 650 mg 03/24/22 14:00 Acetaminophen 325 Mg Tab PO Q4H PRN Pain, Moderate (4-6) Amlodipine Besylate 10 mg 03/24/22 10:00 03/25/22 10:28 Amlodipine 10 Mg Tab PO 10 mg DAILY [facility]ERT[facility] Administration Aspirin 81 mg 03/24/22 10:00 03/25/22 10:28 Aspirin Ec 81 Mg Tab PO 81 mg QDAY [facility] Administration Clonidine HCl 0.3 mg 03/28/22 17:55 Clonidine Tts 0.3 Mg/24 Hr Patch TD Sa [facility] Clopidogrel Bisulfate 75 mg 03/24/22 10:00 03/25/22 10:28 Clopidogrel 75 Mg Tab PO 75 mg QDAY [facility] Administration Dextrose 50 ml 03/24/22 09:30 Dextrose 50% In Water (25gm) 50 Ml Syringe IV Q30MIN PRN Hypoglycemia Protocol Doxazosin Mesylate 4 mg 03/24/22 10:00 03/25/22 10:28 Doxazosin 4 Mg Tab PO 4 mg QDAY [facility] Administration Ergocalciferol 50,000 unit 03/25/22 10:00 03/25/22 10:28 Ergocalciferol (Vit D2) 50,000 Unit Cap PO 50,000 unit We [facility] Administration Escitalopram Oxalate 20 mg 03/24/22 14:00 03/25/22 10:28 Escitalopram 10 Mg Tab PO 20 mg DAILY [facility] Administration Hydralazine HCl 50 mg 03/24/22 14:00 03/25/22 20:23 Hydralazine 25 Mg Tab PO 50 mg TID [facility]ERT[facility] Administration Insulin Glargine 22 units 03/24/22 22:00 03/25/22 21:29 Insulin Glargine 100 Units/Ml SUB-Q 22 units QHS [facility] Administration Insulin Human Lispro 0 unit 03/24/22 11:30 03/25/22 21:30 Insulin Lispro 100 Unit/Ml SUB-Q 3 unit ACHS [facility]ERT[facility] Administration Protocol Loperamide HCl 2 mg 03/24/22 14:00 Loperamide 2 Mg Cap PO Q6H PRN Diarrhea Magnesium Hydroxide 30 ml 03/24/22 09:00 Magnesium Hydroxide (Mom) Oral Liqd Udc PO DAILY PRN Constipation Metoprolol Succinate 100 mg 03/24/22 10:00 03/25/22 10:28 Metoprolol Succinate Xl 100 Mg Tab PO 100 mg QDAY [facility] Administration Ondansetron HCl 4 mg 03/24/22 09:00 Ondansetron 4 Mg Odt Tab PO Q8H PRN Nausea Pantoprazole Sodium 40 mg 03/24/22 10:00 03/25/22 08:30 Pantoprazole 40 Mg Tab PO 40 mg QDAC [facility] Administration Polyethylene Glycol 17 gm 03/24/22 10:00 03/25/22 10:28 Polyethylene Glycol 3350 17 Gm Powder PO 17 gm DAILY [facility]ERT[facility] Administration Sertraline HCl 25 mg 03/25/22 12:00 03/25/22 14:18 Sertraline 25 Mg Tab PO 25 mg QDAY [facility] Administration
[2022-03-26] MEDS: INSULIN LISPRO 100 UNIT/ML SUB-Q SCH ×4 (08:00→21:45)
--- NOTE | 2022-03-26 09:17 | Progress Note ---
Subjective Date of service: 03/26/22 Principal diagnosis: MDD Subjective Comment: The patient was seen today. He is talking more today. He says he is ready to go home. I ask him how he feels he replies "good." He does verbalize feeling depressed but denies SI/HI or hallucinations. Will start Abilify to adjunct the lexapro for underlying depression. 03/25 The patient was seen today. He is calm and cooperative. He says he feels okay. The patient says he is hungry. He also verbalizes feeling depressed. He denies SI/HI. Attempted language line several times, kept asking me for account number after putting it in. Will attempt later. REVIEW OF SYSTEMS Unable to obtain MENTAL STATUS EXAMINATION Unable to obtain Assessment (1) Major Depressive Disorder Current Visit: Yes Status: Acute TREATMENT PLAN Patient admitted for inpatient psychiatric evaluation, medication adjustment an d close monitoring The patient's behavior, mood, sleep and appetite will be closely monitored. Patient enrolled in individual and group therapeutic sessions and encouraged to attend. Patient provided with a safe and structured environment. Patient's physical health needs will be addressed by the Hospitalist. Hospitalist Consulted Labs including CBC, CMP, Lipid profile and Hemoglobin A1C levels ordered for baseline reference d/c Zoloft 25mg po daily Start Abilify 2.5mg to treat underlying depression Social Assessment will be completed and the Mule Spinner will work with patient and family to ensure a suitable and safe disposition Medication adjustment will be made as clinically indicated Usual Wellness Hinduism/Preservation: - Start Trazodone 50 mg po QHS & 50 mg po QHS PRN between 10 PM & 2 AM for insomnia - Start Melatonin 5 mg po QHS to promote circadian rhythm - Start [place]-3 for brain health, reduce impulsivity, and as adjunctive coni atment for mood disorder, continue upon discharge given overall benefits. - Start B1 prophylaxis with 200 mg po for 5 days The patient agreed on the treatment plan, understood the risk, benefit, alt ernative treatment, potential consequence of no treatment, and gave informed consent. Medications and Allergies Allergies Allergy/AdvReac Type Severity Reaction Status Date / Time No Known Allergies Allergy Verified 03/24/22 00:00 Home Medications Medication Instructions Recorded Confirmed Last Taken Type Acetaminophen [Acetaminophen ER] 650 mg PO Q4HR PRN 03/24/22 03/24/22 Unknown History Aspirin EC [Halfprin EC] 81 mg PO QDAY 03/24/22 03/24/22 Unknown History Clopidogrel [Plavix] 75 mg PO QDAY 03/24/22 03/24/22 Unknown History Doxazosin [Cardura] 4 mg PO QDAY 03/24/22 03/24/22 Unknown History Ergocalciferol [Vitamin D2] 1 cap PO QWEEK 03/24/22 03/24/22 Unknown History Escitalopram Oxalate [Lexapro] 20 mg PO DAILY 03/24/22 03/24/22 Unknown History Hydralazine HCl 50 mg PO TID 03/24/22 03/24/22 Unknown History Insulin Aspart (Nf) [NovoLOG 0 units SQ AC PRN 03/24/22 03/24/22 Unknown History Flexpen] Insulin Detemir [Levemir Flextouch] 22 unit SQ HS 03/24/22 03/24/22 Unknown History Loperamide [Imodium] 2 mg PO Q6HR PRN 03/24/22 03/24/22 Unknown History Magnesium Hydroxide [Milk of 400 mg PO DAILY PRN 03/24/22 03/24/22 Unknown History Magnesia] Metoprolol Xl [Metoprolol 100 mg PO QDAY 03/24/22 03/24/22 Unknown History SUCCINATE ER TAB] Omeprazole 40 mg PO DAILY 03/24/22 03/24/22 Unknown History Ondansetron [Zofran Odt] 4 mg PO Q8HR PRN 03/24/22 03/24/22 Unknown History Polyethylene Glycol 3350 17 gm PO DAILY 03/24/22 03/24/22 Unknown History [Powderlax] amLODIPine [Norvasc] 10 mg PO DAILY 03/24/22 03/24/22 Unknown History cloNIDine-TTS PATCH [Catapres-Tts 1 patch TD Q7D 03/24/22 03/24/22 Unknown History 0.3mg Patch] Active Meds: Active Medications Acetaminophen (Acetaminophen 325 Mg Tab) 650 mg PO Q4H PRN PRN Reason: Pain, Moderate (4-6) Amlodipine Besylate (Amlodipine 10 Mg Tab) 10 mg PO DAILY [facility] Last Admin: 03/25/22 10:28 Dose: 10 mg Aspirin (Aspirin Ec 81 Mg Tab) 81 mg PO QDAY [facility] Last Admin: 03/25/22 10:28 Dose: 81 mg Clonidine HCl (Clonidine Tts 0.3 Mg/24 Hr Patch) 0.3 mg TD Sa [facility] Clopidogrel Bisulfate (Clopidogrel 75 Mg Tab) 75 mg PO QDAY [facility] Last Admin: 03/25/22 10:28 Dose: 75 mg Dextrose (Dextrose 50% In Water (25gm) 50 Ml Syringe) 50 ml IV Q30MIN PRN; Pr otocol PRN Reason: Hypoglycemia Doxazosin Mesylate (Doxazosin 4 Mg Tab) 4 mg PO QDAY [facility] Last Admin: 03/25/22 10:28 Dose: 4 mg Ergocalciferol (Ergocalciferol (Vit D2) 50,000 Unit Cap) 50,000 unit PO We [facility] Last Admin: 03/25/22 10:28 Dose: 50,000 unit Escitalopram Oxalate (Escitalopram 10 Mg Tab) 20 mg PO DAILY [facility] Last Admin: 03/25/22 10:28 Dose: 20 mg Hydralazine HCl (Hydralazine 25 Mg Tab) 50 mg PO TID [facility] Last Admin: 03/25/22 20:23 Dose: 50 mg Insulin Glargine (Insulin Glargine 100 Units/Ml) 22 units SUB-Q QHS [facility] Last Admin: 03/25/22 21:29 Dose: 22 units Insulin Human Lispro (Insulin Lispro 100 Unit/Ml) 0 unit SUB-Q [facility]; Protocol Last Admin: 03/25/22 21:30 Dose: 3 unit Loperamide HCl (Loperamide 2 Mg Cap) 2 mg PO Q6H PRN PRN Reason: Diarrhea Magnesium Hydroxide (Magnesium Hydroxide (Mom) Oral Liqd Udc) 30 ml PO DAILY PRN PRN Reason: Constipation Metoprolol Succinate (Metoprolol Succinate Xl 100 Mg Tab) 100 mg PO QDAY [facility] Last Admin: 03/25/22 10:28 Dose: 100 mg Ondansetron HCl (Ondansetron 4 Mg Odt Tab) 4 mg PO Q8H PRN PRN Reason: Nausea Pantoprazole Sodium (Pantoprazole 40 Mg Tab) 40 mg PO QDAC [facility] Last Admin: 03/25/22 08:30 Dose: 40 mg Polyethylene Glycol (Polyethylene Glycol 3350 17 Gm Powder) 17 gm PO DAILY [facility] Last Admin: 03/25/22 10:28 Dose: 17 gm Sertraline HCl (Sertraline 25 Mg Tab) 25 mg PO QDAY [facility] Last Admin: 03/25/22 14:18 Dose: 25 mg Results - Results Labs/Vitals: Laboratory Last Values WBC 9.1 K/mm3 (4.5-11.0) 03/24/22 00:47 RBC 3.49 M/mm3 (3.65-5.03) L 03/24/22 00:47 Hgb 10.6 gm/dl (11.8-15.2) L 03/24/22 00:47 Hct 32.3 % (35.5-45.6) L 03/24/22 00:47 MCV 93 fl (84-94) 03/24/22 00:47 MCH 30 pg (28-32) 03/24/22 00:47 MCHC 33 % (32-34) 03/24/22 00:47 RDW 13.6 % (13.2-15.2) 03/24/22 00:47 Plt Count 200 K/mm3 (140-440) 03/24/22 00:47 Lymph % (Auto) 16.5 % (13.4-35.0) 03/24/22 00:47 [place] % (Auto) 6.9 % (0.0-7.3) 03/24/22 00:47 Eos % (Auto) 4.9 % (0.0-4.3) H 03/24/22 00:47 Baso % (Auto) 0.6 % (0.0-1.8) 03/24/22 00:47 Lymph # (Auto) 1.5 K/mm3 (1.2-5.4) 03/24/22 00:47 [place] # (Auto) 0.6 K/mm3 (0.0-0.8) 03/24/22 00:47 Eos # (Auto) 0.4 K/mm3 (0.0-0.4) 03/24/22 00:47 Baso # (Auto) 0.1 K/mm3 (0.0-0.1) 03/24/22 00:47 Seg Neutrophils % 71.1 % (40.0-70.0) H 03/24/22 00:47 Seg Neutrophils # 6.5 K/mm3 (1.8-7.7) 03/24/22 00:47 Sodium 140 mmol/L (137-145) 03/24/22 00:47 Potassium 4.5 mmol/L (3.6-5.0) 03/24/22 00:47 Chloride 104.2 mmol/L (98-107) 03/24/22 00:47 Carbon Dioxide 19 mmol/L (22-30) L 03/24/22 00:47 Anion Gap 21 mmol/L 03/24/22 00:47 BUN 58 mg/dL (9-20) H 03/24/22 00:47 Creatinine 4.5 mg/dL (0.8-1.3) H 03/24/22 00:47 Estimated GFR 13 ml/min 03/24/22 00:47 BUN/Creatinine Ratio 13 % 03/24/22 00:47 Glucose 255 mg/dL (75-100) H 03/24/22 00:47 POC Glucose 85 mg/dL (70-105) 03/26/22 06:20 Hemoglobin A1c 6.5 % (4-6) H 03/24/22 00:47 Calcium 8.1 mg/dL (8.4-10.2) L 03/24/22 00:47 Total Bilirubin 0.20 mg/dL (0.1-1.2) 03/24/22 00:47 AST 11 units/L (5-40) 03/24/22 00:47 ALT 8 units/L (7-56) 03/24/22 00:47 Alkaline Phosphatase 60 units/L (35-129) 03/24/22 00:47 Total Protein 5.5 g/dL (6.3-8.2) L 03/24/22 00:47 Albumin 3.2 g/dL (3.9-5) L 03/24/22 00:47 Albumin/Globulin Ratio 1.4 % 03/24/22 00:47 Triglycerides 157 mg/dL (2-149) H 03/24/22 00:47 Cholesterol 96 mg/dL (50-199) 03/24/22 00:47 LDL Cholesterol Direct 38 mg/dL (50-130) L 03/24/22 00:47 HDL Cholesterol 28 mg/dL (40-59) L 03/24/22 00:47 Cholesterol/HDL Ratio 3.42 % 03/24/22 00:47 TSH 2.970 mlU/mL (0.270-4.200) 04 00:47 Hep Bs Antigen Non-reactive (Negative) 03/24/22 00:47 Hep B Core IgM Ab Non-reactive (NonReactive) 03/24/22 00:47 Hepatitis C Antibody Non-reactive (NonReactive) 03/24/22 00:47 Last Vital Signs Temp 97.5 F L 03/25/22 20:00 Pulse 57 L 03/25/22 20:23 Resp 12 03/25/22 20:00 BP 127/63 03/25/22 20:23 Pulse Ox 96 03/25/22 20:00
[2022-03-26] MEDS: METOPROLOL SUCCINATE XL 100 MG TAB PO SCH (10:18)
[2022-03-26] MEDS: ASPIRIN EC 81 MG TAB PO SCH (10:19)
[2022-03-26] MEDS: ESCITALOPRAM 10 MG TAB PO SCH (10:19)
[2022-03-26] MEDS: hydrALAZINE 25 MG TAB PO SCH ×3 (10:19→21:46)
[2022-03-26] MEDS: amLODIPine 10 MG TAB PO SCH (10:19)
[2022-03-26] MEDS: CLOPIDOGREL 75 MG TAB PO SCH (10:20)
[2022-03-26] MEDS: DOXAZOSIN 4 MG TAB PO SCH (10:20)
[2022-03-26] MEDS: PANTOPRAZOLE 40 MG TAB PO SCH (10:20)
[2022-03-26] MEDS: POLYETHYLENE GLYCOL 3350 17 GM POWDER PO SCH (10:24)
[2022-03-26] MEDS: ARIPiprazole 5 MG TAB PO SCH (10:36)
[2022-03-26 13:46] LABS: Hematocrit 29.5 % (35.5-45.6); Hemoglobin 9.6 gm/dl (11.8-15.2); Mean Corpuscular HGB Conc 33 % (32-34); Mean Corpuscular Volume 92 fl (84-94); Platelet Count 197 K/mm3 (140-440); Red Blood Count 3.19 M/mm3 (3.65-5.03); Red Cell Distribution Width 13.4 % (13.2-15.2)
[2022-03-26] MEDS: METOPROLOL SUCCINATE XL 50 MG TAB PO SCH (15:06)
[2022-03-26] MEDS: INSULIN GLARGINE 100 UNITS/ML SUB-Q SCH (21:46)
[2022-03-27] MEDS: INSULIN LISPRO 100 UNIT/ML SUB-Q SCH ×4 (08:00→21:08)
--- NOTE | 2022-03-27 11:07 | Progress Note ---
Subjective Date of service: 03/27/22 Principal diagnosis: MDD Subjective Comment: 03/27: The patient was seen today with the nurse in the room. He states he is doing ok. The patient has language barrier and delay in response. he denies being depressed. He initially states he is suicidal however, after repeated questioning he denies having suicidal ideation and denies hallucinations. No changes made today. 03/26:The patient was seen today. He is talking more today. He says he is ready to go home. I ask him how he feels he replies "good." He does verbalize feeling depressed but denies SI/HI or hallucinations. Will start Abilify to adjunct the lexapro for underlying depression. 03/25 The patient was seen today. He is calm and cooperative. He says he feels okay. The patient says he is hungry. He also verbalizes feeling depressed. He denies SI/HI. Attempted language line several times, kept asking me for account number after putting it in. Will attempt later. REVIEW OF SYSTEMS Unable to obtain MENTAL STATUS EXAMINATION Unable to obtain Assessment (1) Major Depressive Disorder Current Visit: Yes Status: Acute TREATMENT PLAN Patient admitted for inpatient psychiatric evaluation, medication adjustment and close monitoring The patient's behavior, mood, sleep and appetite will be closely monitored. Patient enrolled in individual and group therapeutic sessions and encouraged to attend. Patient provided with a safe and structured environment. Patient's physical health needs will be addressed by the Hospitalist. Hospitalist Consulted Labs including CBC, CMP, Lipid profile and Hemoglobin A1C levels ordered for baseline reference Start Abilify 2.5mg to treat underlying depression Social Assessment will be completed and the Direct Care Counselor will work with patient and family to ensure a suitable and safe disposition Medication adjustment will be made as clinically indicated Usual Wellness Anabaptist/Preservation: - Start Trazodone 50 mg po QHS & 50 mg po QHS PRN between 10 PM & 2 AM for insomnia - Start Melatonin 5 mg po QHS to promote circadian rhythm - Start [place]-3 for brain health, reduce impulsivity, and as adjunctive treatment for mood disorder, continue upon discharge given overall benefits. - Start B1 prophylaxis with 200 mg po for 5 days The patient agreed on the treatment plan, understood the risk, benefit, alternative treatment, potential consequence of no treatment, and gave informed consent. Medications and Allergies Medications and Allergies Allergies Allergy/AdvReac Type Severity Reaction Status Date / Time No Known Allergies Allergy Verified 03/24/22 00:00 Home Medications Medication Instructions Recorded Confirmed Last Taken Type Acetaminophen [Acetaminophen ER] 650 mg PO Q4HR PRN 03/24/22 03/24/22 Unknown History Aspirin EC [Halfprin EC] 81 mg PO QDAY 03/24/22 03/24/22 Unknown History Clopidogrel [Plavix] 75 mg PO QDAY 03/24/22 03/24/22 Unknown History Doxazosin [Cardura] 4 mg PO QDAY 03/24/22 03/24/22 Unknown History Ergocalciferol [Vitamin D2] 1 cap PO QWEEK 03/24/22 03/24/22 Unknown History Escitalopram Oxalate [Lexapro] 20 mg PO DAILY 03/24/22 03/24/22 Unknown History Hydralazine HCl 50 mg PO TID 03/24/22 03/24/22 Unknown History Insulin Aspart (Nf) [NovoLOG 0 units SQ AC PRN 03/24/22 03/24/22 Unknown History Flexpen] Insulin Detemir [Levemir Flextouch] 22 unit SQ HS 03/24/22 03/24/22 Unknown History Loperamide [Imodium] 2 mg PO Q6HR PRN 03/24/22 03/24/22 Unknown History Magnesium Hydroxide [Milk of 400 mg PO DAILY PRN 03/24/22 03/24/22 Unknown History Magnesia] Metoprolol Xl [Metoprolol 100 mg PO QDAY 03/24/22 03/24/22 Unknown History SUCCINATE ER TAB] Omeprazole 40 mg PO DAILY 03/24/22 03/24/22 Unknown History Ondansetron [Zofran Odt] 4 mg PO Q8HR PRN 03/24/22 03/24/22 Unknown History Polyethylene Glycol 3350 17 gm PO DAILY 03/24/22 03/24/22 Unknown History [Powderlax] amLODIPine [Norvasc] 10 mg PO DAILY 03/24/22 03/24/22 Unknown History cloNIDine-TTS PATCH [Catapres-Tts 1 patch TD Q7D 03/24/22 03/24/22 Unknown History 0.3mg Patch] Active Meds: Active Medications Acetaminophen (Acetaminophen 325 Mg Tab) 650 mg PO Q4H PRN PRN Reason: Pain, Moderate (4-6) Amlodipine Besylate (Amlodipine 10 Mg Tab) 10 mg PO DAILY [facility] Last Admin: 03/26/22 10:19 Dose: 10 mg Aripiprazole (Aripiprazole 5 Mg Tab) 2.5 mg PO QDAY [facility] Last Admin: 03/26/22 10:36 Dose: 2.5 mg Aspirin (Aspirin Ec 81 Mg Tab) 81 mg PO QDAY [facility] Last Admin: 03/26/22 10:19 Dose: 81 mg Clonidine HCl (Clonidine Tts 0.3 Mg/24 Hr Patch) 0.3 mg TD Sa [facility] Clopidogrel Bisulfate (Clopidogrel 75 Mg Tab) 75 mg PO QDAY [facility] Last Admin: 03/26/22 10:20 Dose: 75 mg Dextrose (Dextrose 50% In Water (25gm) 50 Ml Syringe) 50 ml IV Q30MIN PRN; Protocol PRN Reason: Hypoglycemia Doxazosin Mesylate (Doxazosin 4 Mg Tab) 4 mg PO QDAY [facility] Last Admin: 03/26/22 10:20 Dose: 4 mg Ergocalciferol (Ergocalciferol (Vit D2) 50,000 Unit Cap) 50,000 unit PO We [facility] Last Admin: 03/25/22 10:28 Dose: 50,000 unit Escitalopram Oxalate (Escitalopram 10 Mg Tab) 20 mg PO DAILY [facility] Last Admin: 03/26/22 10:19 Dose: 20 mg Hydralazine HCl (Hydralazine 25 Mg Tab) 50 mg PO TID [facility] Last Admin: 03/26/22 21:46 Dose: Not Given Insulin Glargine (Insulin Glargine 100 Units/Ml) 22 units SUB-Q QHS [facility] Last Admin: 03/26/22 21:46 Dose: Not Given Insulin Human Lispro (Insulin Lispro 100 Unit/Ml) 0 unit SUB-Q [facility]; Protocol Last Admin: 03/26/22 21:45 Dose: Not Given Loperamide HCl (Loperamide 2 Mg Cap) 2 mg PO Q6H PRN PRN Reason: Diarrhea Magnesium Hydroxide (Magnesium Hydroxide (Mom) Oral Liqd Udc) 30 ml PO DAILY PRN PRN Reason: Constipation Metoprolol Succinate (Metoprolol Succinate Xl 50 Mg Tab) 50 mg PO QDAY [facility] Last Admin: 03/26/22 15:06 Dose: Not Given Ondansetron HCl (Ondansetron 4 Mg Odt Tab) 4 mg PO Q8H PRN PRN Reason: Nausea Pantoprazole Sodium (Pantoprazole 40 Mg Tab) 40 mg PO QDAC [facility] Last Admin: 03/26/22 10:20 Dose: 40 mg Polyethylene Glycol (Polyethylene Glycol 3350 17 Gm Powder) 17 gm PO DAILY [facility] Last Admin: 03/26/22 10:24 Dose: 17 gm Results - Results Labs/Vitals: Laboratory Last Values WBC 7.2 K/mm3 (4.5-11.0) 03/26/22 13:03 RBC 3.19 M/mm3 (3.65-5.03) L 03/26/22 13:03 Hgb 9.6 gm/dl (11.8-15.2) L 03/26/22 13:03 Hct 29.5 % (35.5-45.6) L 03/26/22 13:03 MCV 92 fl (84-94) 03/26/22 13:03 MCH 30 pg (28-32) 03/26/22 13:03 MCHC 33 % (32-34) 03/26/22 13:03 RDW 13.4 % (13.2-15.2) 03/26/22 13:03 Plt Count 197 K/mm3 (140-440) 03/26/22 13:03 Lymph % (Auto) 16.5 % (13.4-35.0) 03/24/22 00:47 [place] % (Auto) 6.9 % (0.0-7.3) 03/24/22 00:47 Eos % (Auto) 4.9 % (0.0-4.3) H 03/24/22 00:47 Baso % (Auto) 0.6 % (0.0-1.8) 03/24/22 00:47 Lymph # (Auto) 1.5 K/mm3 (1.2-5.4) 03/24/22 00:47 [place] # (Auto) 0.6 K/mm3 (0.0-0.8) 03/24/22 00:47 Eos # (Auto) 0.4 K/mm3 (0.0-0.4) 03/24/22 00:47 Baso # (Auto) 0.1 K/mm3 (0.0-0.1) 03/24/22 00:47 Seg Neutrophils % 71.1 % (40.0-70.0) H 03/24/22 00:47 Seg Neutrophils # 6.5 K/mm3 (1.8-7.7) 03/24/22 00:47 Sodium 140 mmol/L (137-145) 03/24/22 00:47 Potassium 4.5 mmol/L (3.6-5.0) 03/24/22 00:47 Chloride 104.2 mmol/L (98-107) 03/24/22 00:47 Carbon Dioxide 19 mmol/L (22-30) L 03/24/22 00:47 Anion Gap 21 mmol/L 03/24/22 00:47 BUN 58 mg/dL (9-20) H 03/24/22 00:47 Creatinine 4.5 mg/dL (0.8-1.3) H 03/24/22 00:47 Estimated GFR 13 ml/min 03/24/22 00:47 BUN/Creatinine Ratio 13 % 03/24/22 00:47 Glucose 255 mg/dL (75-100) H 03/24/22 00:47 POC Glucose 160 mg/dL (70-105) H 03/26/22 20:34 Hemoglobin A1c 6.5 % (4-6) H 03/24/22 00:47 Calcium 8.1 mg/dL (8.4-10.2) L 03/24/22 00:47 Total Bilirubin 0.20 mg/dL (0.1-1.2) 03/24/22 00:47 AST 11 units/L (5-40) 03/24/22 00:47 ALT 8 units/L (7-56) 03/24/22 00:47 Alkaline Phosphatase 60 units/L (35-129) 03/24/22 00:47 Total Protein 5.5 g/dL (6.3-8.2) L 03/24/22 00:47 Albumin 3.2 g/dL (3.9-5) L 03/24/22 00:47 Albumin/Globulin Ratio 1.4 % 03/24/22 00:47 Triglycerides 157 mg/dL (2-149) H 03/24/22 00:47 Cholesterol 96 mg/dL (50-199) 03/24/22 00:47 LDL Cholesterol Direct 38 mg/dL (50-130) L 03/24/22 00:47 HDL Cholesterol 28 mg/dL (40-59) L 03/24/22 00:47 Cholesterol/HDL Ratio 3.42 % 03/24/22 00:47 TSH 2.970 mlU/mL (0.270-4.200) 03/24/22 00:47 Hep Bs Antigen Non-reactive (Negative) 03/24/22 00:47 Hep B Core IgM Ab Non-reactive (NonReactive) 03/24/22 00:47 Hepatitis C Antibody Non-reactive (NonReactive) 03/24/22 00:47 Last Vital Signs Temp 97.5 F L 03/26/22 20:33 Pulse 63 03/26/22 21:46 Resp 17 03/26/22 20:33 BP 118/51 03/26/22 21:46 Pulse Ox 98 03/26/22 20:33
[2022-03-27] MEDS: DOXAZOSIN 4 MG TAB PO SCH (13:40)
[2022-03-27] MEDS: CLOPIDOGREL 75 MG TAB PO SCH (13:40)
[2022-03-27] MEDS: ARIPiprazole 5 MG TAB PO SCH (13:40)
[2022-03-27] MEDS: ESCITALOPRAM 10 MG TAB PO SCH (13:41)
[2022-03-27] MEDS: ASPIRIN EC 81 MG TAB PO SCH (13:44)
[2022-03-27] MEDS: POLYETHYLENE GLYCOL 3350 17 GM POWDER PO SCH (13:45)
[2022-03-27] MEDS: METOPROLOL SUCCINATE XL 50 MG TAB PO SCH (13:46)
[2022-03-27] MEDS: amLODIPine 10 MG TAB PO SCH (13:57)
[2022-03-27] MEDS: PANTOPRAZOLE 40 MG TAB PO SCH (13:57)
[2022-03-27] MEDS: hydrALAZINE 25 MG TAB PO SCH ×3 (13:58→21:07)
[2022-03-27] MEDS: INSULIN GLARGINE 100 UNITS/ML SUB-Q SCH (21:13)
[2022-03-28] MEDS: INSULIN LISPRO 100 UNIT/ML SUB-Q SCH ×4 (08:29→21:32)
[2022-03-28] MEDS: hydrALAZINE 25 MG TAB PO SCH ×3 (08:35→20:56)
[2022-03-28] MEDS: PANTOPRAZOLE 40 MG TAB PO SCH (08:36)
--- NOTE | 2022-03-28 09:38 | Progress Note ---
Subjective Date of service: 03/28/22 Principal diagnosis: MDD Subjective Comment: 03/28/: The patient was seen today with the nurse in the room. He states he is doing pretty good. He states sleep and appetite is good. The patient continues to endorse depression but he is unable to rate. He denies any current suicidal/homicidal ideation and denies hallucinations. Increased Abilify to 5mg po daily, started Trazodone 50mg po QHS. 03/27: The patient was seen today with the nurse in the room. He states he is doing ok. The patient has language barrier and delay in response. he denies being depressed. He initially states he is suicidal however, after repeated questioning he denies having suicidal ideation and denies hallucinations. No changes made today. 03/26:The patient was seen today. He is talking more today. He says he is ready to go home. I ask him how he feels he replies "good." He does verbalize feeling depressed but denies SI/HI or hallucinations. Will start Abilify to adjunct the lexapro for underlying depression. 03/25 The patient was seen today. He is calm and cooperative. He says he feels okay. The patient says he is hungry. He also verbalizes feeling depressed. He denies SI/HI. Attempted language line several times, kept asking me for account number after putting it in. Will attempt later. REVIEW OF SYSTEMS Unable to obtain MENTAL STATUS EXAMINATION Unable to obtain Assessment (1) Major Depressive Disorder Current Visit: Yes Status: Acute TREATMENT PLAN Patient admitted for inpatient psychiatric evaluation, medication adjustment and close monitoring The patient's behavior, mood, sleep and appetite will be closely monitored. Patient enrolled in individual and group therapeutic sessions and encouraged to attend. Patient provided with a safe and structured environment. Patient's physical health needs will be addressed by the Hospitalist. Hospitalist Consulted Labs including CBC, CMP, Lipid profile and Hemoglobin A1C levels ordered for baseline reference Social Assessment will be completed and the Inventory Control Coordinator will work with patient and family to ensure a suitable and safe disposition Medication adjustment will be made as clinically indicated Usual Wellness Anabaptist/Preservation: - Start Trazodone 50 mg po QHS & 50 mg po QHS PRN between 10 PM & 2 AM for insomnia - Start Melatonin 5 mg po QHS to promote circadian rhythm - Start Max[place]wny-3 for brain health, reduce impulsivity, and as adjunctive treatment for mood disorder, continue upon discharge given overall benefits. - Start B1 prophylaxis with 200 mg po for 5 days The patient agreed on the treatment plan, understood the risk, benefit, alternative treatment, potential consequence of no treatment, and gave informed consent. Medications and Allergies Medications and Allergies Allergies Allergy/AdvReac Type Severity Reaction Status Date / Time No Known Allergies Allergy Verified 03/24/22 00:00 Home Medications Medication Instructions Recorded Confirmed Last Taken Type Acetaminophen [Acetaminophen ER] 650 mg PO Q4HR PRN 03/24/22 03/24/22 Unknown History Aspirin EC [Halfprin EC] 81 mg PO QDAY 03/24/22 03/24/22 Unknown History Clopidogrel [Plavix] 75 mg PO QDAY 03/24/22 03/24/22 Unknown History Doxazosin [Cardura] 4 mg PO QDAY 03/24/22 03/24/22 Unknown History Ergocalciferol [Vitamin D2] 1 cap PO QWEEK 03/24/22 03/24/22 Unknown History Escitalopram Oxalate [Lexapro] 20 mg PO DAILY 03/24/22 03/24/22 Unknown History Hydralazine HCl 50 mg PO TID 03/24/22 03/24/22 Unknown History Insulin Aspart (Nf) [NovoLOG 0 units SQ AC PRN 03/24/22 03/24/22 Unknown History Flexpen] Insulin Detemir [Levemir Flextouch] 22 unit SQ HS 03/24/22 03/24/22 Unknown History Loperamide [Imodium] 2 mg PO Q6HR PRN 03/24/22 03/24/22 Unknown History Magnesium Hydroxide [Milk of 400 mg PO DAILY PRN 03/24/22 03/24/22 Unknown History Magnesia] Metoprolol Xl [Metoprolol 100 mg PO QDAY 03/24/22 03/24/22 Unknown History SUCCINATE ER TAB] Omeprazole 40 mg PO DAILY 03/24/22 03/24/22 Unknown History Ondansetron [Zofran Odt] 4 mg PO Q8HR PRN 03/24/22 03/24/22 Unknown History Polyethylene Glycol 3350 17 gm PO DAILY 03/24/22 03/24/22 Unknown History [Powderlax] amLODIPine [Norvasc] 10 mg PO DAILY 03/24/22 03/24/22 Unknown History cloNIDine-TTS PATCH [Catapres-Tts 1 patch TD Q7D 03/24/22 03/24/22 Unknown History 0.3mg Patch] Active Meds: Active Medications Acetaminophen (Acetaminophen 325 Mg Tab) 650 mg PO Q4H PRN PRN Reason: Pain, Moderate (4-6) Amlodipine Besylate (Amlodipine 10 Mg Tab) 10 mg PO DAILY [facility] Last Admin: 03/27/22 13:57 Dose: 10 mg Aripiprazole (Aripiprazole 5 Mg Tab) 2.5 mg PO QDAY [facility] Last Admin: 03/27/22 13:40 Dose: 2.5 mg Aspirin (Aspirin Ec 81 Mg Tab) 81 mg PO QDAY [facility] Last Admin: 03/27/22 13:44 Dose: 81 mg Clonidine HCl (Clonidine Tts 0.3 Mg/24 Hr Patch) 0.3 mg TD Sa [facility] Clopidogrel Bisulfate (Clopidogrel 75 Mg Tab) 75 mg PO QDAY [facility] Last Admin: 03/27/22 13:40 Dose: 75 mg Dextrose (Dextrose 50% In Water (25gm) 50 Ml Syringe) 50 ml IV Q30MIN PRN; Protocol PRN Reason: Hypoglycemia Doxazosin Mesylate (Doxazosin 4 Mg Tab) 4 mg PO QDAY [facility] Last Admin: 03/27/22 13:40 Dose: 4 mg Ergocalciferol (Ergocalciferol (Vit D2) 50,000 Unit Cap) 50,000 unit PO We [facility] Last Admin: 03/25/22 10:28 Dose: 50,000 unit Escitalopram Oxalate (Escitalopram 10 Mg Tab) 20 mg PO DAILY [facility] Last Admin: 03/27/22 13:41 Dose: 20 mg Hydralazine HCl (Hydralazine 25 Mg Tab) 50 mg PO TID [facility] Last Admin: 03/28/22 08:35 Dose: 50 mg Insulin Glargine (Insulin Glargine 100 Units/Ml) 22 units SUB-Q QHS [facility] Last Admin: 03/27/22 21:13 Dose: Not Given Insulin Human Lispro (Insulin Lispro 100 Unit/Ml) 0 unit SUB-Q ACHS [facility]; Protocol Last Admin: 03/28/22 08:29 Dose: Not Given Loperamide HCl (Loperamide 2 Mg Cap) 2 mg PO Q6H PRN PRN Reason: Diarrhea Magnesium Hydroxide (Magnesium Hydroxide (Mom) Oral Liqd Udc) 30 ml PO DAILY PRN PRN Reason: Constipation Metoprolol Succinate (Metoprolol Succinate Xl 50 Mg Tab) 50 mg PO QDAY [facility] Last Admin: 03/27/22 13:46 Dose: Not Given Ondansetron HCl (Ondansetron 4 Mg Odt Tab) 4 mg PO Q8H PRN PRN Reason: Nausea Pantoprazole Sodium (Pantoprazole 40 Mg Tab) 40 mg PO QDAC [facility] Last Admin: 03/28/22 08:36 Dose: 40 mg Polyethylene Glycol (Polyethylene Glycol 3350 17 Gm Powder) 17 gm PO DAILY [facility] Last Admin: 03/27/22 13:45 Dose: 17 gm Results - Results Labs/Vitals: Laboratory Last Values WBC 7.2 K/mm3 (4.5-11.0) 03/26/22 13:03 RBC 3.19 M/mm3 (3.65-5.03) L 03/26/22 13:03 Hgb 9.6 gm/dl (11.8-15.2) L 03/26/22 13:03 Hct 29.5 % (35.5-45.6) L 03/26/22 13:03 MCV 92 fl (84-94) 03/26/22 13:03 MCH 30 pg (28-32) 03/26/22 13:03 MCHC 33 % (32-34) 03/26/22 13:03 RDW 13.4 % (13.2-15.2) 03/26/22 13:03 Plt Count 197 K/mm3 (140-440) 03/26/22 13:03 Lymph % (Auto) 16.5 % (13.4-35.0) 03/24/22 00:47 [place] % (Auto) 6.9 % (0.0-7.3) 03/24/22 00:47 Eos % (Auto) 4.9 % (0.0-4.3) H 03/24/22 00:47 Baso % (Auto) 0.6 % (0.0-1.8) 03/24/22 00:47 Lymph # (Auto) 1.5 K/mm3 (1.2-5.4) 03/24/22 00:47 [place] # (Auto) 0.6 K/mm3 (0.0-0.8) 03/24/22 00:47 Eos # (Auto) 0.4 K/mm3 (0.0-0.4) 03/24/22 00:47 Baso # (Auto) 0.1 K/mm3 (0.0-0.1) 03/24/22 00:47 Seg Neutrophils % 71.1 % (40.0-70.0) H 03/24/22 00:47 Seg Neutrophils # 6.5 K/mm3 (1.8-7.7) 03/24/22 00:47 Sodium 140 mmol/L (137-145) 03/24/22 00:47 Potassium 4.5 mmol/L (3.6-5.0) 03/24/22 00:47 Chloride 104.2 mmol/L (98-107) 03/24/22 00:47 Carbon Dioxide 19 mmol/L (22-30) L 03/24/22 00:47 Anion Gap 21 mmol/L 03/24/22 00:47 BUN 58 mg/dL (9-20) H 03/24/22 00:47 Creatinine 4.5 mg/dL (0.8-1.3) H 03/24/22 00:47 Estimated GFR 13 ml/min 03/24/22 00:47 BUN/Creatinine Ratio 13 % 03/24/22 00:47 Glucose 255 mg/dL (75-100) H 03/24/22 00:47 POC Glucose 120 mg/dL (70-105) H 03/27/22 20:01 Hemoglobin A1c 6.5 % (4-6) H 03/24/22 00:47 Calcium 8.1 mg/dL (8.4-10.2) L 03/24/22 00:47 Total Bilirubin 0.20 mg/dL (0.1-1.2) 03/24/22 00:47 AST 11 units/L (5-40) 03/24/22 00:47 ALT 8 units/L (7-56) 03/24/22 00:47 Alkaline Phosphatase 60 units/L (35-129) 03/24/22 00:47 Total Protein 5.5 g/dL (6.3-8.2) L 03/24/22 00:47 Albumin 3.2 g/dL (3.9-5) L 03/24/22 00:47 Albumin/Globulin Ratio 1.4 % 03/24/22 00:47 Triglycerides 157 mg/dL (2-149) H 03/24/22 00:47 Cholesterol 96 mg/dL (50-199) 03/24/22 00:47 LDL Cholesterol Direct 38 mg/dL (50-130) L 03/24/22 00:47 HDL Cholesterol 28 mg/dL (40-59) L 03/24/22 00:47 Cholesterol/HDL Ratio 3.42 % 03/24/22 00:47 TSH 2.970 mlU/mL (0.270-4.200) 03/24/22 00:47 Hep Bs Antigen Non-reactive (Negative) 03/24/22 00:47 Hep B Core IgM Ab Non-reactive (NonReactive) 03/24/22 00:47 Hepatitis C Antibody Non-reactive (NonReactive) 03/24/22 00:47 Last Vital Signs Temp 98.1 F 03/28/22 06:36 Pulse 59 L 03/28/22 08:35 Resp 17 03/28/22 06:36 BP 143/61 03/28/22 08:35 Pulse Ox 97 03/28/22 06:36
[2022-03-28] MEDS: ARIPiprazole 5 MG TAB PO SCH (10:17)
[2022-03-28] MEDS: DOXAZOSIN 4 MG TAB PO SCH (10:17)
[2022-03-28] MEDS: amLODIPine 10 MG TAB PO SCH (10:17)
[2022-03-28] MEDS: ESCITALOPRAM 10 MG TAB PO SCH (10:17)
[2022-03-28] MEDS: CLOPIDOGREL 75 MG TAB PO SCH (10:17)
[2022-03-28] MEDS: ASPIRIN EC 81 MG TAB PO SCH (10:17)
[2022-03-28] MEDS: POLYETHYLENE GLYCOL 3350 17 GM POWDER PO SCH (10:17)
[2022-03-28] MEDS: METOPROLOL SUCCINATE XL 50 MG TAB PO SCH (10:18)
--- NOTE | 2022-03-28 11:37 | Progress Note ---
Assessment and Plan - Patient Problems (1) Vascular dementia with behavioral disturbance Current Visit: Yes Status: Acute Plan to address problem: Verbal prompting, verbal redirection, benzodiazepine therapy as clinically indicated. (2) Cerebral atherosclerosis Current Visit: Yes Status: Acute Plan to address problem: Antiplatelet therapy, risk factor reduction, supportive care. (3) Hypertension Current Visit: Yes Status: Acute Qualifiers: Hypertension type: primary hypertension Qualified Code(s): I10 - Essential (primary) hypertension Plan to address problem: Monitor blood pressure every shift, continue medical management. (4) Hyperlipidemia Current Visit: Yes Status: Acute Plan to address problem: Low-cholesterol diet, balanced diet, supportive care, risk factor reduction (5) Diabetes Current Visit: Yes Status: Acute Plan to address problem: Insulin protocol, hypoglycemia protocol consistent carbohydrate diet, Accu-Chek (6) ANNIA (generalized anxiety disorder) Current Visit: Yes Status: Acute Plan to address problem: Benzodiazepine therapy as clinically indicated. (7) MDD (major depressive disorder) Current Visit: Yes Status: Acute Plan to address problem: Supportive care, continue medical management. Cognitive behavioral therapy. (8) GERD (gastroesophageal reflux disease) Current Visit: Yes Status: Acute Qualifiers: Esophagitis presence: without esophagitis Qualified Code(s): K21.9 - Gastro-esophageal reflux disease without esophagitis Plan to address problem: PPI therapy, supportive care. (9) Advance care planning Current Visit: Yes Status: Acute Plan to address problem: Disease education conducted, care plan discussed, diagnoses discussed, prognosis discussed, patient is full code, +30 minutes. 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 Consult placed by Dr. Stiles for medical management. Patient seen and evaluated in the recreation room. No reported nursing events. Patient denies pain at this time. Patient remains at baseline level of cognition and function. Hospitalist Physical - Constitutional Vitals: Temp Pulse Resp BP Pulse Ox 98.1 F 62 18 140/65 96 03/28/22 06:36 03/28/22 10:18 03/28/22 10:06 03/28/22 10:18 03/28/22 10:06 General appearance: Present: no acute distress - EENT Eyes: Present: PERRL ENT: hearing decreased - Neck Neck: Present: supple - Respiratory Respiratory effort: normal Respiratory: bilateral: CTA - Cardiovascular Rhythm: regular Heart Sounds: Present: S1 & S2 - Extremities Extremities: no ischemia Peripheral Pulses: within normal limits - Abdominal General gastrointestinal: soft, non-tender, non-distended - Integumentary Integumentary: Present: clear, dry - Psychiatric Psychiatric: cooperative - Neurologic Neurologic: CNII-XII intact Results - Labs CBC & Chem 7: 03/26/22 13:03 03/24/22 00:47 Labs: Laboratory Last Values WBC 7.2 K/mm3 (4.5-11.0) 03/26/22 13:03 RBC 3.19 M/mm3 (3.65-5.03) L 03/26/22 13:03 Hgb 9.6 gm/dl (11.8-15.2) L 03/26/22 13:03 Hct 29.5 % (35.5-45.6) L 03/26/22 13:03 MCV 92 fl (84-94) 03/26/22 13:03 MCH 30 pg (28-32) 03/26/22 13:03 MCHC 33 % (32-34) 03/26/22 13:03 RDW 13.4 % (13.2-15.2) 03/26/22 13:03 Plt Count 197 K/mm3 (140-440) 03/26/22 13:03 Lymph % (Auto) 16.5 % (13.4-35.0) 03/24/22 00:47 [place] % (Auto) 6.9 % (0.0-7.3) 03/24/22 00:47 Eos % (Auto) 4.9 % (0.0-4.3) H 03/24/22 00:47 Baso % (Auto) 0.6 % (0.0-1.8) 03/24/22 00:47 Lymph # (Auto) 1.5 K/mm3 (1.2-5.4) 03/24/22 00:47 [place] # (Auto) 0.6 K/mm3 (0.0-0.8) 03/24/22 00:47 Eos # (Auto) 0.4 K/mm3 (0.0-0.4) 03/24/22 00:47 Baso # (Auto) 0.1 K/mm3 (0.0-0.1) 03/24/22 00:47 Seg Neutrophils % 71.1 % (40.0-70.0) H 03/24/22 00:47 Seg Neutrophils # 6.5 K/mm3 (1.8-7.7) 03/24/22 00:47 Sodium 140 mmol/L (137-145) 03/24/22 00:47 Potassium 4.5 mmol/L (3.6-5.0) 03/24/22 00:47 Chloride 104.2 mmol/L (98-107) 03/24/22 00:47 Carbon Dioxide 19 mmol/L (22-30) L 03/24/22 00:47 Anion Gap 21 mmol/L 03/24/22 00:47 BUN 58 mg/dL (9-20) H 03/24/22 00:47 Creatinine 4.5 mg/dL (0.8-1.3) H 03/24/22 00:47 Estimated GFR 13 ml/min 03/24/22 00:47 BUN/Creatinine Ratio 13 % 03/24/22 00:47 Glucose 255 mg/dL (75-100) H 03/24/22 00:47 POC Glucose 120 mg/dL (70-105) H 03/27/22 20:01 Hemoglobin A1c 6.5 % (4-6) H 03/24/22 00:47 Calcium 8.1 mg/dL (8.4-10.2) L 03/24/22 00:47 Total Bilirubin 0.20 mg/dL (0.1-1.2) 03/24/22 00:47 AST 11 units/L (5-40) 03/24/22 00:47 ALT 8 units/L (7-56) 03/24/22 00:47 Alkaline Phosphatase 60 units/L (35-129) 03/24/22 00:47 Total Protein 5.5 g/dL (6.3-8.2) L 03/24/22 00:47 Albumin 3.2 g/dL (3.9-5) L 03/24/22 00:47 Albumin/Globulin Ratio 1.4 % 03/24/22 00:47 Triglycerides 157 mg/dL (2-149) H 03/24/22 00:47 Cholesterol 96 mg/dL (50-199) 03/24/22 00:47 LDL Cholesterol Direct 38 mg/dL (50-130) L 03/24/22 00:47 HDL Cholesterol 28 mg/dL (40-59) L 03/24/22 00:47 Cholesterol/HDL Ratio 3.42 % 03/24/22 00:47 TSH 2.970 mlU/mL (0.270-4.200) 03/24/22 00:47 Hep Bs Antigen Non-reactive (Negative) 03/24/22 00:47 Hep B Core IgM Ab Non-reactive (NonReactive) 03/24/22 00:47 Hepatitis C Antibody Non-reactive (NonReactive) 03/24/22 00:47 Carpenter/IV: Voiding Method Incontinent Active Medications - Current Medications Current Medications: Generic Name Dose Route Start Last Admin Trade Name Freq PRN Reason Stop Dose Admin Acetaminophen 650 mg 03/24/22 14:00 Acetaminophen 325 Mg Tab PO Q4H PRN Pain, Moderate (4-6) Amlodipine Besylate 10 mg 03/24/22 10:00 03/28/22 10:17 Amlodipine 10 Mg Tab PO 10 mg DAILY [facility] Administration Aripiprazole 5 mg 03/28/22 10:00 03/28/22 10:17 Aripiprazole 5 Mg Tab PO 5 mg QDAY [facility] Administration Aspirin 81 mg 03/24/22 10:00 03/28/22 10:17 Aspirin Ec 81 Mg Tab PO 81 mg QDAY [facility] Administration Clonidine HCl 0.3 mg 03/28/22 17:55 Clonidine Tts 0.3 Mg/24 Hr Patch TD Sa REPLACED BY [facility] Clopidogrel Bisulfate 75 mg 03/24/22 10:00 03/28/22 10:17 Clopidogrel 75 Mg Tab PO 75 mg QDAY [facility] Administration Dextrose 50 ml 03/24/22 09:30 Dextrose 50% In Water (25gm) 50 Ml Syringe IV Q30MIN PRN Hypoglycemia Protocol Doxazosin Mesylate 4 mg 03/24/22 10:00 03/28/22 10:17 Doxazosin 4 Mg Tab PO 4 mg QDAY [facility] Administration Ergocalciferol 50,000 unit 03/25/22 10:00 03/25/22 10:28 Ergocalciferol (Vit D2) 50,000 Unit Cap PO 50,000 unit We [facility] Administration Escitalopram Oxalate 20 mg 03/24/22 14:00 03/28/22 10:17 Escitalopram 10 Mg Tab PO 20 mg DAILY REPLACED BY [facility] Administration Hydralazine HCl 50 mg 03/24/22 14:00 03/28/22 08:35 Hydralazine 25 Mg Tab PO 50 mg TID REPLACED BY [facility] Administration Insulin Glargine 22 units 03/24/22 22:00 03/27/22 21:13 Insulin Glargine 100 Units/Ml SUB-Q Not Given QHS REPLACED BY [facility] Insulin Human Lispro 0 unit 03/24/22 11:30 03/28/22 08:29 Insulin Lispro 100 Unit/Ml SUB-Q Not Given [facility] REPLACED BY [facility] Protocol Loperamide HCl 2 mg 03/24/22 14:00 Loperamide 2 Mg Cap PO Q6H PRN Diarrhea Magnesium Hydroxide 30 ml 03/24/22 09:00 Magnesium Hydroxide (Mom) Oral Liqd Udc PO DAILY PRN Constipation Metoprolol Succinate 50 mg 03/26/22 14:00 03/28/22 10:18 Metoprolol Succinate Xl 50 Mg Tab PO 50 mg QDAY REPLACED BY [facility] Administration Ondansetron HCl 4 mg 03/24/22 09:00 Ondansetron 4 Mg Odt Tab PO Q8H PRN Nausea Pantoprazole Sodium 40 mg 03/24/22 10:00 03/28/22 08:36 Pantoprazole 40 Mg Tab PO 40 mg QDAC REPLACED BY [facility] Administration Polyethylene Glycol 17 gm 03/24/22 10:00 03/28/22 10:17 Polyethylene Glycol 3350 17 Gm Powder PO 17 gm DAILY REPLACED BY [facility] Administration Trazodone HCl 50 mg 03/28/22 22:00 Trazodone 50 Mg Tab PO QHS REPLACED BY [facility]
--- NOTE | 2022-03-28 13:48 | Progress Note ---
Assessment and Plan - Patient Problems (1) Vascular dementia with behavioral disturbance Current Visit: Yes Status: Acute Plan to address problem: Verbal prompting, verbal redirection, benzodiazepine therapy as clinically indicated. (2) Cerebral atherosclerosis Current Visit: Yes Status: Acute Plan to address problem: Antiplatelet therapy, risk factor reduction, supportive care. (3) Hypertension Current Visit: Yes Status: Acute Qualifiers: Hypertension type: primary hypertension Qualified Code(s): I10 - Essential (primary) hypertension Plan to address problem: Monitor blood pressure every shift, continue medical management. (4) Hyperlipidemia Current Visit: Yes Status: Acute Plan to address problem: Low-cholesterol diet, balanced diet, supportive care, risk factor reduction (5) Diabetes Current Visit: Yes Status: Acute Plan to address problem: Insulin protocol, hypoglycemia protocol consistent carbohydrate diet, Accu-Chek (6) ANNIA (generalized anxiety disorder) Current Visit: Yes Status: Acute Plan to address problem: Benzodiazepine therapy as clinically indicated. (7) MDD (major depressive disorder) Current Visit: Yes Status: Acute Plan to address problem: Supportive care, continue medical management. Cognitive behavioral therapy. (8) GERD (gastroesophageal reflux disease) Current Visit: Yes Status: Acute Qualifiers: Esophagitis presence: without esophagitis Qualified Code(s): K21.9 - Gastro-esophageal reflux disease without esophagitis Plan to address problem: PPI therapy, supportive care. (9) Advance care planning Current Visit: Yes Status: Acute Plan to address problem: Disease education conducted, care plan discussed, diagnoses discussed, prognosis discussed, patient is full code, +30 minutes. 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 Consult placed by Dr. Stiles for medical management. Patient seen and evaluated in the recreation room. No reported nursing events. Patient denies pain at this time. Patient remains at baseline level of cognition and function. Hospitalist Physical - Constitutional Vitals: Temp Pulse Resp BP Pulse Ox 98.1 F 62 18 140/65 96 03/28/22 06:36 03/28/22 10:18 03/28/22 10:06 03/28/22 10:18 03/28/22 10:06 General appearance: Present: no acute distress - EENT Eyes: Present: PERRL ENT: hearing decreased - Neck Neck: Present: supple - Respiratory Respiratory effort: normal Respiratory: bilateral: CTA - Cardiovascular Rhythm: regular Heart Sounds: Present: S1 & S2 - Extremities Extremities: no ischemia Peripheral Pulses: within normal limits - Abdominal General gastrointestinal: soft, non-tender, non-distended - Integumentary Integumentary: Present: clear, dry - Psychiatric Psychiatric: cooperative - Neurologic Neurologic: CNII-XII intact Results - Labs CBC & Chem 7: 03/26/22 13:03 03/24/22 00:47 Labs: Laboratory Last Values WBC 7.2 K/mm3 (4.5-11.0) 03/26/22 13:03 RBC 3.19 M/mm3 (3.65-5.03) L 03/26/22 13:03 Hgb 9.6 gm/dl (11.8-15.2) L 03/26/22 13:03 Hct 29.5 % (35.5-45.6) L 03/26/22 13:03 MCV 92 fl (84-94) 03/26/22 13:03 MCH 30 pg (28-32) 03/26/22 13:03 MCHC 33 % (32-34) 03/26/22 13:03 RDW 13.4 % (13.2-15.2) 03/26/22 13:03 Plt Count 197 K/mm3 (140-440) 03/26/22 13:03 Lymph % (Auto) 16.5 % (13.4-35.0) 03/24/22 00:47 [place] % (Auto) 6.9 % (0.0-7.3) 03/24/22 00:47 Eos % (Auto) 4.9 % (0.0-4.3) H 03/24/22 00:47 Baso % (Auto) 0.6 % (0.0-1.8) 03/24/22 00:47 Lymph # (Auto) 1.5 K/mm3 (1.2-5.4) 03/24/22 00:47 [place] # (Auto) 0.6 K/mm3 (0.0-0.8) 03/24/22 00:47 Eos # (Auto) 0.4 K/mm3 (0.0-0.4) 03/24/22 00:47 Baso # (Auto) 0.1 K/mm3 (0.0-0.1) 03/24/22 00:47 Seg Neutrophils % 71.1 % (40.0-70.0) H 03/24/22 00:47 Seg Neutrophils # 6.5 K/mm3 (1.8-7.7) 03/24/22 00:47 Sodium 140 mmol/L (137-145) 03/24/22 00:47 Potassium 4.5 mmol/L (3.6-5.0) 03/24/22 00:47 Chloride 104.2 mmol/L (98-107) 03/24/22 00:47 Carbon Dioxide 19 mmol/L (22-30) L 03/24/22 00:47 Anion Gap 21 mmol/L 03/24/22 00:47 BUN 58 mg/dL (9-20) H 03/24/22 00:47 Creatinine 4.5 mg/dL (0.8-1.3) H 03/24/22 00:47 Estimated GFR 13 ml/min 03/24/22 00:47 BUN/Creatinine Ratio 13 % 03/24/22 00:47 Glucose 255 mg/dL (75-100) H 03/24/22 00:47 POC Glucose 226 mg/dL (70-105) H 03/28/22 11:35 Hemoglobin A1c 6.5 % (4-6) H 03/24/22 00:47 Calcium 8.1 mg/dL (8.4-10.2) L 03/24/22 00:47 Total Bilirubin 0.20 mg/dL (0.1-1.2) 03/24/22 00:47 AST 11 units/L (5-40) 03/24/22 00:47 ALT 8 units/L (7-56) 03/24/22 00:47 Alkaline Phosphatase 60 units/L (35-129) 03/24/22 00:47 Total Protein 5.5 g/dL (6.3-8.2) L 03/24/22 00:47 Albumin 3.2 g/dL (3.9-5) L 03/24/22 00:47 Albumin/Globulin Ratio 1.4 % 03/24/22 00:47 Triglycerides 157 mg/dL (2-149) H 03/24/22 00:47 Cholesterol 96 mg/dL (50-199) 03/24/22 00:47 LDL Cholesterol Direct 38 mg/dL (50-130) L 03/24/22 00:47 HDL Cholesterol 28 mg/dL (40-59) L 03/24/22 00:47 Cholesterol/HDL Ratio 3.42 % 03/24/22 00:47 TSH 2.970 mlU/mL (0.270-4.200) 03/24/22 00:47 Hep Bs Antigen Non-reactive (Negative) 03/24/22 00:47 Hep B Core IgM Ab Non-reactive (NonReactive) 03/24/22 00:47 Hepatitis C Antibody Non-reactive (NonReactive) 03/24/22 00:47 Carpenter/IV: Voiding Method Incontinent Active Medications - Current Medications Current Medications: Generic Name Dose Route Start Last Admin Trade Name Freq PRN Reason Stop Dose Admin Acetaminophen 650 mg 03/24/22 14:00 Acetaminophen 325 Mg Tab PO Q4H PRN Pain, Moderate (4-6) Amlodipine Besylate 10 mg 03/24/22 10:00 03/28/22 10:17 Amlodipine 10 Mg Tab PO 10 mg DAILY [facility] Administration Aripiprazole 5 mg 03/28/22 10:00 03/28/22 10:17 Aripiprazole 5 Mg Tab PO 5 mg QDAY [facility] Administration Aspirin 81 mg 03/24/22 10:00 03/28/22 10:17 Aspirin Ec 81 Mg Tab PO 81 mg QDAY [facility] Administration Clonidine HCl 0.3 mg 03/28/22 17:55 Clonidine Tts 0.3 Mg/24 Hr Patch TD Sa [facility] Clopidogrel Bisulfate 75 mg 03/24/22 10:00 03/28/22 10:17 Clopidogrel 75 Mg Tab PO 75 mg QDAY [facility] Administration Dextrose 50 ml 03/24/22 09:30 Dextrose 50% In Water (25gm) 50 Ml Syringe IV Q30MIN PRN Hypoglycemia Protocol Doxazosin Mesylate 4 mg 03/24/22 10:00 03/28/22 10:17 Doxazosin 4 Mg Tab PO 4 mg QDAY [facility] Administration Ergocalciferol 50,000 unit 03/25/22 10:00 03/25/22 10:28 Ergocalciferol (Vit D2) 50,000 Unit Cap PO 50,000 unit We [facility] Administration Escitalopram Oxalate 20 mg 03/24/22 14:00 03/28/22 10:17 Escitalopram 10 Mg Tab PO 20 mg DAILY [facility] Administration Hydralazine HCl 50 mg 03/24/22 14:00 03/28/22 08:35 Hydralazine 25 Mg Tab PO 50 mg TID [facility] Administration Insulin Glargine 22 units 03/24/22 22:00 03/27/22 21:13 Insulin Glargine 100 Units/Ml SUB-Q Not Given QHS [facility] Insulin Human Lispro 0 unit 03/24/22 11:30 03/28/22 08:29 Insulin Lispro 100 Unit/Ml SUB-Q Not Given [facility] Protocol Loperamide HCl 2 mg 03/24/22 14:00 Loperamide 2 Mg Cap PO Q6H PRN Diarrhea Magnesium Hydroxide 30 ml 03/24/22 09:00 Magnesium Hydroxide (Mom) Oral Liqd Udc PO DAILY PRN Constipation Metoprolol Succinate 50 mg 03/26/22 14:00 03/28/22 10:18 Metoprolol Succinate Xl 50 Mg Tab PO 50 mg QDAY [facility] Administration Ondansetron HCl 4 mg 03/24/22 09:00 Ondansetron 4 Mg Odt Tab PO Q8H PRN Nausea Pantoprazole Sodium 40 mg 03/24/22 10:00 03/28/22 08:36 Pantoprazole 40 Mg Tab PO 40 mg QDAC [facility] Administration Polyethylene Glycol 17 gm 03/24/22 10:00 03/28/22 10:17 Polyethylene Glycol 3350 17 Gm Powder PO 17 gm DAILY [facility] Administration Trazodone HCl 50 mg 03/28/22 22:00 Trazodone 50 Mg Tab PO QHS [facility]
[2022-03-28] MEDS ORDERED: cloNIDine TTS 0.3 MG/24 HR PATCH TD SCH (17:55)
[2022-03-28] MEDS: traZODone 50 MG TAB PO SCH (21:31)
[2022-03-28] MEDS: INSULIN GLARGINE 100 UNITS/ML SUB-Q SCH (21:32)
[2022-03-29] MEDS: INSULIN LISPRO 100 UNIT/ML SUB-Q SCH ×4 (07:31→21:30)
[2022-03-29] MEDS: hydrALAZINE 25 MG TAB PO SCH ×3 (08:09→21:03)
[2022-03-29] MEDS: PANTOPRAZOLE 40 MG TAB PO SCH (08:09)
--- NOTE | 2022-03-29 09:36 | Progress Note ---
Subjective Date of service: 03/29/22 Principal diagnosis: MDD Subjective Comment: 03/29:he patient was seen today. he states he is doing well. He continues to endorse depression but unable to rate. He denies any current suicidal/homicidal ideation and denies hallucinations. No changes made today. 03/28/: The patient was seen today with the nurse in the room. He states he is doing pretty good. He states sleep and appetite is good. The patient continues to endorse depression but he is unable to rate. He denies any current suicidal/homicidal ideation and denies hallucinations. Increased Abilify to 5mg po daily, started Trazodone 50mg po QHS. 03/27: The patient was seen today with the nurse in the room. He states he is doing ok. The patient has language barrier and delay in response. he denies being depressed. He initially states he is suicidal however, after repeated questioning he denies having suicidal ideation and denies hallucinations. No changes made today. 03/26:The patient was seen today. He is talking more today. He says he is ready to go home. I ask him how he feels he replies "good." He does verbalize feeling depressed but denies SI/HI or hallucinations. Will start Abilify to adjunct the lexapro for underlying depression. 03/25 The patient was seen today. He is calm and cooperative. He says he feels okay. The patient says he is hungry. He also verbalizes feeling depressed. He denies SI/HI. Attempted language line several times, kept asking me for account number after putting it in. Will attempt later. REVIEW OF SYSTEMS Unable to obtain MENTAL STATUS EXAMINATION Unable to obtain Assessment (1) Major Depressive Disorder Current Visit: Yes Status: Acute TREATMENT PLAN Patient admitted for inpatient psychiatric evaluation, medication adjustment and close monitoring The patient's behavior, mood, sleep and appetite will be closely monitored. Patient enrolled in individual and group therapeutic sessions and encouraged to attend. Patient provided with a safe and structured environment. Patient's physical health needs will be addressed by the Hospitalist. Hospitalist Consulted Labs including CBC, CMP, Lipid profile and Hemoglobin A1C levels ordered for baseline reference Social Assessment will be completed and the [employer] Incident Responder will work with patient and family to ensure a suitable and safe disposition Medication adjustment will be made as clinically indicated Usual Wellness Baptism/Preservation: - Start Trazodone 50 mg po QHS & 50 mg po QHS PRN between 10 PM & 2 AM for insomnia - Start Melatonin 5 mg po QHS to promote circadian rhythm - Start [place]-3 for brain health, reduce impulsivity, and as adjunctive treatment for mood disorder, continue upon discharge given overall benefits. - Start B1 prophylaxis with 200 mg po for 5 days The patient agreed on the treatment plan, understood the risk, benefit, alternative treatment, potential consequence of no treatment, and gave informed consent. Medications and Allergies Medications and Allergies Allergies Allergy/AdvReac Type Severity Reaction Status Date / Time No Known Allergies Allergy Verified 03/24/22 00:00 Home Medications Medication Instructions Recorded Confirmed Last Taken Type Acetaminophen [Acetaminophen ER] 650 mg PO Q4HR PRN 03/24/22 03/24/22 Unknown History Aspirin EC [Halfprin EC] 81 mg PO QDAY 03/24/22 03/24/22 Unknown History Clopidogrel [Plavix] 75 mg PO QDAY 03/24/22 03/24/22 Unknown History Doxazosin [Cardura] 4 mg PO QDAY 03/24/22 03/24/22 Unknown History Ergocalciferol [Vitamin D2] 1 cap PO QWEEK 03/24/22 03/24/22 Unknown History Escitalopram Oxalate [Lexapro] 20 mg PO DAILY 03/24/22 03/24/22 Unknown History Hydralazine HCl 50 mg PO TID 03/24/22 03/24/22 Unknown History Insulin Aspart (Nf) [NovoLOG 0 units SQ AC PRN 03/24/22 03/24/22 Unknown History Flexpen] Insulin Detemir [Levemir Flextouch] 22 unit SQ HS 03/24/22 03/24/22 Unknown History Loperamide [Imodium] 2 mg PO Q6HR PRN 03/24/22 03/24/22 Unknown History Magnesium Hydroxide [Milk of 400 mg PO DAILY PRN 03/24/22 03/24/22 Unknown History Magnesia] Metoprolol Xl [Metoprolol 100 mg PO QDAY 03/24/22 03/24/22 Unknown History SUCCINATE ER TAB] Omeprazole 40 mg PO DAILY 03/24/22 03/24/22 Unknown History Ondansetron [Zofran Odt] 4 mg PO Q8HR PRN 03/24/22 03/24/22 Unknown History Polyethylene Glycol 3350 17 gm PO DAILY 03/24/22 03/24/22 Unknown History [Powderlax] amLODIPine [Norvasc] 10 mg PO DAILY 03/24/22 03/24/22 Unknown History cloNIDine-TTS PATCH [Catapres-Tts 1 patch TD Q7D 03/24/22 03/24/22 Unknown History 0.3mg Patch] Active Meds: Active Medications Acetaminophen (Acetaminophen 325 Mg Tab) 650 mg PO Q4H PRN PRN Reason: Pain, Moderate (4-6) Amlodipine Besylate (Amlodipine 10 Mg Tab) 10 mg PO DAILY [facility] Last Admin: 03/28/22 10:17 Dose: 10 mg Aripiprazole (Aripiprazole 5 Mg Tab) 5 mg PO QDAY [facility] Last Admin: 03/28/22 10:17 Dose: 5 mg Aspirin (Aspirin Ec 81 Mg Tab) 81 mg PO QDAY [facility] Last Admin: 03/28/22 10:17 Dose: 81 mg Clonidine HCl (Clonidine Tts 0.3 Mg/24 Hr Patch) 0.3 mg TD Sa [facility] Last Admin: 03/28/22 17:55 Dose: 0.3 mg Clopidogrel Bisulfate (Clopidogrel 75 Mg Tab) 75 mg PO QDAY [facility] Last Admin: 03/28/22 10:17 Dose: 75 mg Dextrose (Dextrose 50% In Water (25gm) 50 Ml Syringe) 50 ml IV Q30MIN PRN; Protocol PRN Reason: Hypoglycemia Doxazosin Mesylate (Doxazosin 4 Mg Tab) 4 mg PO QDAY [facility] Last Admin: 03/28/22 10:17 Dose: 4 mg Ergocalciferol (Ergocalciferol (Vit D2) 50,000 Unit Cap) 50,000 unit PO We [facility] Last Admin: 03/25/22 10:28 Dose: 50,000 unit Escitalopram Oxalate (Escitalopram 10 Mg Tab) 20 mg PO DAILY [facility] Last Admin: 03/28/22 10:17 Dose: 20 mg Hydralazine HCl (Hydralazine 25 Mg Tab) 50 mg PO TID [facility] Last Admin: 03/29/22 08:09 Dose: 50 mg Insulin Glargine (Insulin Glargine 100 Units/Ml) 22 units SUB-Q QHS [facility] Last Admin: 03/28/22 21:32 Dose: 22 units Insulin Human Lispro (Insulin Lispro 100 Unit/Ml) 0 unit SUB-Q ACHS [facility]; Protocol Last Admin: 03/29/22 07:31 Dose: Not Given Loperamide HCl (Loperamide 2 Mg Cap) 2 mg PO Q6H PRN PRN Reason: Diarrhea Magnesium Hydroxide (Magnesium Hydroxide (Mom) Oral Liqd Udc) 30 ml PO DAILY PRN PRN Reason: Constipation Metoprolol Succinate (Metoprolol Succinate Xl 50 Mg Tab) 50 mg PO QDAY [facility] Last Admin: 03/28/22 10:18 Dose: 50 mg Ondansetron HCl (Ondansetron 4 Mg Odt Tab) 4 mg PO Q8H PRN PRN Reason: Nausea Pantoprazole Sodium (Pantoprazole 40 Mg Tab) 40 mg PO QDAC [facility] Last Admin: 03/29/22 08:09 Dose: 40 mg Polyethylene Glycol (Polyethylene Glycol 3350 17 Gm Powder) 17 gm PO DAILY [facility] Last Admin: 03/28/22 10:17 Dose: 17 gm Trazodone HCl (Trazodone 50 Mg Tab) 50 mg PO QHS [facility] Last Admin: 03/28/22 21:31 Dose: 50 mg Results - Results Labs/Vitals: Laboratory Last Values WBC 7.2 K/mm3 (4.5-11.0) 03/26/22 13:03 RBC 3.19 M/mm3 (3.65-5.03) L 03/26/22 13:03 Hgb 9.6 gm/dl (11.8-15.2) L 03/26/22 13:03 Hct 29.5 % (35.5-45.6) L 03/26/22 13:03 MCV 92 fl (84-94) 03/26/22 13:03 MCH 30 pg (28-32) 03/26/22 13:03 MCHC 33 % (32-34) 03/26/22 13:03 RDW 13.4 % (13.2-15.2) 03/26/22 13:03 Plt Count 197 K/mm3 (140-440) 03/26/22 13:03 Lymph % (Auto) 16.5 % (13.4-35.0) 03/24/22 00:47 [place] % (Auto) 6.9 % (0.0-7.3) 03/24/22 00:47 Eos % (Auto) 4.9 % (0.0-4.3) H 03/24/22 00:47 Baso % (Auto) 0.6 % (0.0-1.8) 03/24/22 00:47 Lymph # (Auto) 1.5 K/mm3 (1.2-5.4) 03/24/22 00:47 [place] # (Auto) 0.6 K/mm3 (0.0-0.8) 03/24/22 00:47 Eos # (Auto) 0.4 K/mm3 (0.0-0.4) 03/24/22 00:47 Baso # (Auto) 0.1 K/mm3 (0.0-0.1) 03/24/22 00:47 Seg Neutrophils % 71.1 % (40.0-70.0) H 03/24/22 00:47 Seg Neutrophils # 6.5 K/mm3 (1.8-7.7) 03/24/22 00:47 Sodium 140 mmol/L (137-145) 03/24/22 00:47 Potassium 4.5 mmol/L (3.6-5.0) 03/24/22 00:47 Chloride 104.2 mmol/L (98-107) 03/24/22 00:47 Carbon Dioxide 19 mmol/L (22-30) L 03/24/22 00:47 Anion Gap 21 mmol/L 03/24/22 00:47 BUN 58 mg/dL (9-20) H 03/24/22 00:47 Creatinine 4.5 mg/dL (0.8-1.3) H 03/24/22 00:47 Estimated GFR 13 ml/min 03/24/22 00:47 BUN/Creatinine Ratio 13 % 03/24/22 00:47 Glucose 255 mg/dL (75-100) H 03/24/22 00:47 POC Glucose 222 mg/dL (70-105) H 03/28/22 19:50 Hemoglobin A1c 6.5 % (4-6) H 03/24/22 00:47 Calcium 8.1 mg/dL (8.4-10.2) L 03/24/22 00:47 Total Bilirubin 0.20 mg/dL (0.1-1.2) 03/24/22 00:47 AST 11 units/L (5-40) 04 00:47 ALT 8 units/L (7-56) 03/24/22 00:47 Alkaline Phosphatase 60 units/L (35-129) 03/24/22 00:47 Total Protein 5.5 g/dL (6.3-8.2) L 03/24/22 00:47 Albumin 3.2 g/dL (3.9-5) L 03/24/22 00:47 Albumin/Globulin Ratio 1.4 % 03/24/22 00:47 Triglycerides 157 mg/dL (2-149) H 03/24/22 00:47 Cholesterol 96 mg/dL (50-199) 03/24/22 00:47 LDL Cholesterol Direct 38 mg/dL (50-130) L 03/24/22 00:47 HDL Cholesterol 28 mg/dL (40-59) L 03/24/22 00:47 Cholesterol/HDL Ratio 3.42 % 03/24/22 00:47 TSH 2.970 mlU/mL (0.270-4.200) 03/24/22 00:47 Hep Bs Antigen Non-reactive (Negative) 03/24/22 00:47 Hep B Core IgM Ab Non-reactive (NonReactive) 03/24/22 00:47 Hepatitis C Antibody Non-reactive (NonReactive) 03/24/22 00:47 Last Vital Signs Temp 97.5 F L 03/28/22 20:37 Pulse 61 03/29/22 08:09 Resp 18 03/28/22 20:37 BP 142/60 03/29/22 08:09 Pulse Ox 96 03/28/22 20:37
[2022-03-29] MEDS: ESCITALOPRAM 10 MG TAB PO SCH (10:19)
[2022-03-29] MEDS: CLOPIDOGREL 75 MG TAB PO SCH (10:19)
[2022-03-29] MEDS: ASPIRIN EC 81 MG TAB PO SCH (10:19)
[2022-03-29] MEDS: ARIPiprazole 5 MG TAB PO SCH (10:19)
[2022-03-29] MEDS: DOXAZOSIN 4 MG TAB PO SCH (10:20)
[2022-03-29] MEDS: METOPROLOL SUCCINATE XL 50 MG TAB PO SCH (10:20)
[2022-03-29] MEDS: amLODIPine 10 MG TAB PO SCH (10:20)
[2022-03-29] MEDS: POLYETHYLENE GLYCOL 3350 17 GM POWDER PO SCH (10:21)
--- NOTE | 2022-03-29 20:02 | Progress Note ---
Assessment and Plan - Patient Problems (1) Vascular dementia with behavioral disturbance Current Visit: Yes Status: Acute Plan to address problem: Verbal prompting, verbal redirection, benzodiazepine therapy as clinically indicated. (2) Cerebral atherosclerosis Current Visit: Yes Status: Acute Plan to address problem: Antiplatelet therapy, risk factor reduction, supportive care. (3) Hypertension Current Visit: Yes Status: Acute Qualifiers: Hypertension type: primary hypertension Qualified Code(s): I10 - Essential (primary) hypertension Plan to address problem: Monitor blood pressure every shift, continue medical management. (4) Hyperlipidemia Current Visit: Yes Status: Acute Plan to address problem: Low-cholesterol diet, balanced diet, supportive care, risk factor reduction (5) Diabetes Current Visit: Yes Status: Acute Plan to address problem: Insulin protocol, hypoglycemia protocol consistent carbohydrate diet, Accu-Chek (6) ANNIA (generalized anxiety disorder) Current Visit: Yes Status: Acute Plan to address problem: Benzodiazepine therapy as clinically indicated. (7) MDD (major depressive disorder) Current Visit: Yes Status: Acute Plan to address problem: Supportive care, continue medical management. Cognitive behavioral therapy. (8) GERD (gastroesophageal reflux disease) Current Visit: Yes Status: Acute Qualifiers: Esophagitis presence: without esophagitis Qualified Code(s): K21.9 - Gastro-esophageal reflux disease without esophagitis Plan to address problem: PPI therapy, supportive care. (9) Advance care planning Current Visit: Yes Status: Acute Plan to address problem: Disease education conducted, care plan discussed, diagnoses discussed, prognosis discussed, patient is full code, +30 minutes. 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 Consult placed by Dr. Stiles for medical management. Patient seen and evaluated in the recreation room. No reported nursing events. Patient denies pain at this time. Patient remains at baseline level of cognition and function. Hospitalist Physical - Constitutional Vitals: Temp Pulse Resp BP Pulse Ox 97.2 F L 64 16 141/60 97 03/29/22 14:19 03/29/22 14:22 03/29/22 14:19 03/29/22 14:22 03/29/22 14:19 General appearance: Present: no acute distress - EENT Eyes: Present: PERRL ENT: hearing decreased - Neck Neck: Present: supple - Respiratory Respiratory effort: normal Respiratory: bilateral: CTA - Cardiovascular Rhythm: regular Heart Sounds: Present: S1 & S2 - Extremities Extremities: no ischemia Peripheral Pulses: within normal limits - Abdominal General gastrointestinal: soft, non-tender, non-distended - Integumentary Integumentary: Present: clear, dry - Psychiatric Psychiatric: cooperative - Neurologic Neurologic: CNII-XII intact Results - Labs CBC & Chem 7: 03/26/22 13:03 03/24/22 00:47 Labs: Laboratory Last Values WBC 7.2 K/mm3 (4.5-11.0) 03/26/22 13:03 RBC 3.19 M/mm3 (3.65-5.03) L 03/26/22 13:03 Hgb 9.6 gm/dl (11.8-15.2) L 03/26/22 13:03 Hct 29.5 % (35.5-45.6) L 03/26/22 13:03 MCV 92 fl (84-94) 03/26/22 13:03 MCH 30 pg (28-32) 03/26/22 13:03 MCHC 33 % (32-34) 03/26/22 13:03 RDW 13.4 % (13.2-15.2) 03/26/22 13:03 Plt Count 197 K/mm3 (140-440) 03/26/22 13:03 Lymph % (Auto) 16.5 % (13.4-35.0) 03/24/22 00:47 [place] % (Auto) 6.9 % (0.0-7.3) 03/24/22 00:47 Eos % (Auto) 4.9 % (0.0-4.3) H 03/24/22 00:47 Baso % (Auto) 0.6 % (0.0-1.8) 03/24/22 00:47 Lymph # (Auto) 1.5 K/mm3 (1.2-5.4) 03/24/22 00:47 [place] # (Auto) 0.6 K/mm3 (0.0-0.8) 03/24/22 00:47 Eos # (Auto) 0.4 K/mm3 (0.0-0.4) 03/24/22 00:47 Baso # (Auto) 0.1 K/mm3 (0.0-0.1) 03/24/22 00:47 Seg Neutrophils % 71.1 % (40.0-70.0) H 03/24/22 00:47 Seg Neutrophils # 6.5 K/mm3 (1.8-7.7) 03/24/22 00:47 Sodium 140 mmol/L (137-145) 03/24/22 00:47 Potassium 4.5 mmol/L (3.6-5.0) 03/24/22 00:47 Chloride 104.2 mmol/L (98-107) 03/24/22 00:47 Carbon Dioxide 19 mmol/L (22-30) L 03/24/22 00:47 Anion Gap 21 mmol/L 03/24/22 00:47 BUN 58 mg/dL (9-20) H 03/24/22 00:47 Creatinine 4.5 mg/dL (0.8-1.3) H 03/24/22 00:47 Estimated GFR 13 ml/min 03/24/22 00:47 BUN/Creatinine Ratio 13 % 03/24/22 00:47 Glucose 255 mg/dL (75-100) H 03/24/22 00:47 POC Glucose 191 mg/dL (70-105) H 03/29/22 16:07 Hemoglobin A1c 6.5 % (4-6) H 03/24/22 00:47 Calcium 8.1 mg/dL (8.4-10.2) L 03/24/22 00:47 Total Bilirubin 0.20 mg/dL (0.1-1.2) 03/24/22 00:47 AST 11 units/L (5-40) 03/24/22 00:47 ALT 8 units/L (7-56) 03/24/22 00:47 Alkaline Phosphatase 60 units/L (35-129) 03/24/22 00:47 Total Protein 5.5 g/dL (6.3-8.2) L 03/24/22 00:47 Albumin 3.2 g/dL (3.9-5) L 03/24/22 00:47 Albumin/Globulin Ratio 1.4 % 03/24/22 00:47 Triglycerides 157 mg/dL (2-149) H 03/24/22 00:47 Cholesterol 96 mg/dL (50-199) 03/24/22 00:47 LDL Cholesterol Direct 38 mg/dL (50-130) L 03/24/22 00:47 HDL Cholesterol 28 mg/dL (40-59) L 03/24/22 00:47 Cholesterol/HDL Ratio 3.42 % 03/24/22 00:47 TSH 2.970 mlU/mL (0.270-4.200) 03/24/22 00:47 Hep Bs Antigen Non-reactive (Negative) 03/24/22 00:47 Hep B Core IgM Ab Non-reactive (NonReactive) 03/24/22 00:47 Hepatitis C Antibody Non-reactive (NonReactive) 03/24/22 00:47 Carpenter/IV: Voiding Method Diaper Active Medications - Current Medications Current Medications: Generic Name Dose Route Start Last Admin Trade Name Freq PRN Reason Stop Dose Admin Acetaminophen 650 mg 03/24/22 14:00 Acetaminophen 325 Mg Tab PO Q4H PRN Pain, Moderate (4-6) Amlodipine Besylate 10 mg 03/24/22 10:00 03/29/22 10:20 Amlodipine 10 Mg Tab PO Not Given DAILY [facility] Aripiprazole 5 mg 03/28/22 10:00 03/29/22 10:19 Aripiprazole 5 Mg Tab PO 5 mg QDAY [facility] Administration Aspirin 81 mg 03/24/22 10:00 03/29/22 10:19 Aspirin Ec 81 Mg Tab PO 81 mg QDAY [facility] Administration Clonidine HCl 0.3 mg 03/28/22 17:55 03/28/22 17:55 Clonidine Tts 0.3 Mg/24 Hr Patch TD 0.3 mg Sa [facility] Administration Clopidogrel Bisulfate 75 mg 03/24/22 10:00 03/29/22 10:19 Clopidogrel 75 Mg Tab PO 75 mg QDAY [facility] Administration Dextrose 50 ml 03/24/22 09:30 Dextrose 50% In Water (25gm) 50 Ml Syringe IV Q30MIN PRN Hypoglycemia Protocol Doxazosin Mesylate 4 mg 03/24/22 10:00 03/29/22 10:20 Doxazosin 4 Mg Tab PO Not Given QDAY [facility] Ergocalciferol 50,000 unit 03/25/22 10:00 03/25/22 10:28 Ergocalciferol (Vit D2) 50,000 Unit Cap PO 50,000 unit We [facility] Administration Escitalopram Oxalate 20 mg 03/24/22 14:00 03/29/22 10:19 Escitalopram 10 Mg Tab PO 20 mg DAILY [facility] Administration Hydralazine HCl 50 mg 03/24/22 14:00 03/29/22 14:22 Hydralazine 25 Mg Tab PO 50 mg TID [facility] Administration Insulin Glargine 22 units 03/24/22 22:00 03/28/22 21:32 Insulin Glargine 100 Units/Ml SUB-Q 22 units QHS [facility] Administration Insulin Human Lispro 0 unit 03/24/22 11:30 03/29/22 17:52 Insulin Lispro 100 Unit/Ml SUB-Q Not Given ACHS [facility] Protocol Loperamide HCl 2 mg 03/24/22 14:00 Loperamide 2 Mg Cap PO Q6H PRN Diarrhea Magnesium Hydroxide 30 ml 03/24/22 09:00 Magnesium Hydroxide (Mom) Oral Liqd Udc PO DAILY PRN Constipation Metoprolol Succinate 50 mg 03/26/22 14:00 03/29/22 10:20 Metoprolol Succinate Xl 50 Mg Tab PO Not Given QDAY [facility] Ondansetron HCl 4 mg 03/24/22 09:00 Ondansetron 4 Mg Odt Tab PO Q8H PRN Nausea Pantoprazole Sodium 40 mg 03/24/22 10:00 03/29/22 08:09 Pantoprazole 40 Mg Tab PO 40 mg QDAC [facility] Administration Polyethylene Glycol 17 gm 03/24/22 10:00 03/29/22 10:21 Polyethylene Glycol 3350 17 Gm Powder PO 17 gm DAILY [facility] Administration Trazodone HCl 50 mg 03/28/22 22:00 03/28/22 21:31 Trazodone 50 Mg Tab PO 50 mg QHS [facility] Administration
[2022-03-29] MEDS: traZODone 50 MG TAB PO SCH (21:03)
[2022-03-29] MEDS: INSULIN GLARGINE 100 UNITS/ML SUB-Q SCH ×2 (21:31→21:37)
--- NOTE | 2022-03-30 09:15 | Progress Note ---
Subjective Date of service: 03/30/22 Principal diagnosis: MDD Subjective Comment: 03/30:The patient was seen today. He is resting quietly in bed. When asked how he was doing, he nodes his head as in okay. Per nurse, the patient had an uneventful night. No changes made today. 03/29:The patient was seen today. He states he is doing well. He continues to endorse depression but unable to rate. He denies any current suicidal/homicidal ideation and denies hallucinations. No changes made today. 03/28/: The patient was seen today with the nurse in the room. He states he is doing pretty good. He states sleep and appetite is good. The patient continues to endorse depression but he is unable to rate. He denies any current suicidal/homicidal ideation and denies hallucinations. Increased Abilify to 5mg po daily, started Trazodone 50mg po QHS. 03/27: The patient was seen today with the nurse in the room. He states he is doing ok. The patient has language barrier and delay in response. he denies being depressed. He initially states he is suicidal however, after repeated questioning he denies having suicidal ideation and denies hallucinations. No changes made today. 03/26:The patient was seen today. He is talking more today. He says he is ready to go home. I ask him how he feels he replies "good." He does verbalize feeling depressed but denies SI/HI or hallucinations. Will start Abilify to adjunct the lexapro for underlying depression. 03/25 The patient was seen today. He is calm and cooperative. He says he feels okay. The patient says he is hungry. He also verbalizes feeling depressed. He denies SI/HI. Attempted language line several times, kept asking me for account number after putting it in. Will attempt later. REVIEW OF SYSTEMS Unable to obtain MENTAL STATUS EXAMINATION Unable to obtain Assessment (1) Major Depressive Disorder Current Visit: Yes Status: Acute TREATMENT PLAN Patient admitted for inpatient psychiatric evaluation, medication adjustment a nd close monitoring The patient's behavior, mood, sleep and appetite will be closely monitored. Patient enrolled in individual and group therapeutic sessions and encouraged to attend. Patient provided with a safe and structured environment. Patient's physical health needs will be addressed by the Hospitalist. Hospitalist Consulted Labs including CBC, CMP, Lipid profile and Hemoglobin A1C levels ordered for baseline reference Social Assessment will be completed and the Stone Spreader Operator will work with patient and family to ensure a suitable and safe disposition Medication adjustment will be made as clinically indicated Usual Wellness Yazdanism/Preservation: - Start Trazodone 50 mg po QHS & 50 mg po QHS PRN between 10 PM & 2 AM for insomnia - Start Melatonin 5 mg po QHS to promote circadian rhythm - Start [place]-3 for brain health, reduce impulsivity, and as adjunctive treatment for mood disorder, continue upon discharge given overall benefits. - Start B1 prophylaxis with 200 mg po for 5 days The patient agreed on the treatment plan, understood the risk, benefit, alternative treatment, potential consequence of no treatment, and gave informed consent. Medications and Allergies Medications and Allergies Allergies Allergy/AdvReac Type Severity Reaction Status Date / Time No Known Allergies Allergy Verified 03/24/22 00:00 Home Medications Medication Instructions Recorded Confirmed Last Taken Type Acetaminophen [Acetaminophen ER] 650 mg PO Q4HR PRN 03/24/22 03/24/22 Unknown History Aspirin EC [Halfprin EC] 81 mg PO QDAY 03/24/22 03/24/22 Unknown History Clopidogrel [Plavix] 75 mg PO QDAY 03/24/22 03/24/22 Unknown History Doxazosin [Cardura] 4 mg PO QDAY 03/24/22 03/24/22 Unknown History Ergocalciferol [Vitamin D2] 1 cap PO QWEEK 03/24/22 03/24/22 Unknown History Escitalopram Oxalate [Lexapro] 20 mg PO DAILY 03/24/22 03/24/22 Unknown History Hydralazine HCl 50 mg PO TID 03/24/22 03/24/22 Unknown History Insulin Aspart (Nf) [NovoLOG 0 units SQ AC PRN 03/24/22 03/24/22 Unknown History Flexpen] Insulin Detemir [Levemir Flextouch] 22 unit SQ HS 03/24/22 03/24/22 Unknown History Loperamide [Imodium] 2 mg PO Q6HR PRN 03/24/22 03/24/22 Unknown History Magnesium Hydroxide [Milk of 400 mg PO DAILY PRN 03/24/22 03/24/22 Unknown History Magnesia] Metoprolol Xl [Metoprolol 100 mg PO QDAY 03/24/22 03/24/22 Unknown History SUCCINATE ER TAB] Omeprazole 40 mg PO DAILY 03/24/22 03/24/22 Unknown History Ondansetron [Zofran Odt] 4 mg PO Q8HR PRN 03/24/22 03/24/22 Unknown History Polyethylene Glycol 3350 17 gm PO DAILY 03/24/22 03/24/22 Unknown History [Powderlax] amLODIPine [Norvasc] 10 mg PO DAILY 03/24/22 03/24/22 Unknown History cloNIDine-TTS PATCH [Catapres-Tts 1 patch TD Q7D 03/24/22 03/24/22 Unknown History 0.3mg Patch] Active Meds: Active Medications Acetaminophen (Acetaminophen 325 Mg Tab) 650 mg PO Q4H PRN PRN Reason: Pain, Moderate (4-6) Amlodipine Besylate (Amlodipine 10 Mg Tab) 10 mg PO DAILY [facility] Last Admin: 03/29/22 10:20 Dose: Not Given Aripiprazole (Aripiprazole 5 Mg Tab) 5 mg PO QDAY [facility] Last Admin: 03/29/22 10:19 Dose: 5 mg Aspirin (Aspirin Ec 81 Mg Tab) 81 mg PO QDAY [facility] Last Admin: 03/29/22 10:19 Dose: 81 mg Clonidine HCl (Clonidine Tts 0.3 Mg/24 Hr Patch) 0.3 mg TD Sa [facility] Last Admin: 03/28/22 17:55 Dose: 0.3 mg Clopidogrel Bisulfate (Clopidogrel 75 Mg Tab) 75 mg PO QDAY [facility] Last Admin: 03/29/22 10:19 Dose: 75 mg Dextrose (Dextrose 50% In Water (25gm) 50 Ml Syringe) 50 ml IV Q30MIN PRN; Protocol PRN Reason: Hypoglycemia Doxazosin Mesylate (Doxazosin 4 Mg Tab) 4 mg PO QDAY [facility] Last Admin: 03/29/22 10:20 Dose: Not Given Ergocalciferol (Ergocalciferol (Vit D2) 50,000 Unit Cap) 50,000 unit PO We [facility] Last Admin: 03/25/22 10:28 Dose: 50,000 unit Escitalopram Oxalate (Escitalopram 10 Mg Tab) 20 mg PO DAILY [facility] Last Admin: 03/29/22 10:19 Dose: 20 mg Hydralazine HCl (Hydralazine 25 Mg Tab) 50 mg PO TID [facility] Last Admin: 03/29/22 21:03 Dose: 50 mg Insulin Glargine (Insulin Glargine 100 Units/Ml) 22 units SUB-Q QHS [facility] Last Admin: 03/29/22 21:37 Dose: Not Given Insulin Human Lispro (Insulin Lispro 100 Unit/Ml) 0 unit SUB-Q [facility]; Protocol Last Admin: 03/29/22 21:30 Dose: Not Given Loperamide HCl (Loperamide 2 Mg Cap) 2 mg PO Q6H PRN PRN Reason: Diarrhea Magnesium Hydroxide (Magnesium Hydroxide (Mom) Oral Liqd Udc) 30 ml PO DAILY PRN PRN Reason: Constipation Metoprolol Succinate (Metoprolol Succinate Xl 50 Mg Tab) 50 mg PO QDAY [facility] Last Admin: 03/29/22 10:20 Dose: Not Given Ondansetron HCl (Ondansetron 4 Mg Odt Tab) 4 mg PO Q8H PRN PRN Reason: Nausea Pantoprazole Sodium (Pantoprazole 40 Mg Tab) 40 mg PO QDAC [facility] Last Admin: 03/29/22 08:09 Dose: 40 mg Polyethylene Glycol (Polyethylene Glycol 3350 17 Gm Powder) 17 gm PO DAILY [facility] Last Admin: 03/29/22 10:21 Dose: 17 gm Trazodone HCl (Trazodone 50 Mg Tab) 50 mg PO QHS [facility] Last Admin: 03/29/22 21:03 Dose: 50 mg Results - Results Labs/Vitals: Laboratory Last Values WBC 7.2 K/mm3 (4.5-11.0) 03/26/22 13:03 RBC 3.19 M/mm3 (3.65-5.03) L 03/26/22 13:03 Hgb 9.6 gm/dl (11.8-15.2) L 03/26/22 13:03 Hct 29.5 % (35.5-45.6) L 03/26/22 13:03 MCV 92 fl (84-94) 03/26/22 13:03 MCH 30 pg (28-32) 03/26/22 13:03 MCHC 33 % (32-34) 03/26/22 13:03 RDW 13.4 % (13.2-15.2) 03/26/22 13:03 Plt Count 197 K/mm3 (140-440) 03/26/22 13:03 Lymph % (Auto) 16.5 % (13.4-35.0) 03/24/22 00:47 [place] % (Auto) 6.9 % (0.0-7.3) 03/24/22 00:47 Eos % (Auto) 4.9 % (0.0-4.3) H 03/24/22 00:47 Baso % (Auto) 0.6 % (0.0-1.8) 03/24/22 00:47 Lymph # (Auto) 1.5 K/mm3 (1.2-5.4) 03/24/22 00:47 [place] # (Auto) 0.6 K/mm3 (0.0-0.8) 03/24/22 00:47 Eos # (Auto) 0.4 K/mm3 (0.0-0.4) 03/24/22 00:47 Baso # (Auto) 0.1 K/mm3 (0.0-0.1) 04 00:47 Seg Neutrophils % 71.1 % (40.0-70.0) H 03/24/22 00:47 Seg Neutrophils # 6.5 K/mm3 (1.8-7.7) 03/24/22 00:47 Sodium 140 mmol/L (137-145) 03/24/22 00:47 Potassium 4.5 mmol/L (3.6-5.0) 03/24/22 00:47 Chloride 104.2 mmol/L (98-107) 03/24/22 00:47 Carbon Dioxide 19 mmol/L (22-30) L 03/24/22 00:47 Anion Gap 21 mmol/L 03/24/22 00:47 BUN 58 mg/dL (9-20) H 03/24/22 00:47 Creatinine 4.5 mg/dL (0.8-1.3) H 03/24/22 00:47 Estimated GFR 13 ml/min 03/24/22 00:47 BUN/Creatinine Ratio 13 % 03/24/22 00:47 Glucose 255 mg/dL (75-100) H 03/24/22 00:47 POC Glucose 144 mg/dL (70-105) H 03/29/22 19:52 Hemoglobin A1c 6.5 % (4-6) H 03/24/22 00:47 Calcium 8.1 mg/dL (8.4-10.2) L 03/24/22 00:47 Total Bilirubin 0.20 mg/dL (0.1-1.2) 03/24/22 00:47 AST 11 units/L (5-40) 03/24/22 00:47 ALT 8 units/L (7-56) 03/24/22 00:47 Alkaline Phosphatase 60 units/L (35-129) 03/24/22 00:47 Total Protein 5.5 g/dL (6.3-8.2) L 03/24/22 00:47 Albumin 3.2 g/dL (3.9-5) L 03/24/22 00:47 Albumin/Globulin Ratio 1.4 % 03/24/22 00:47 Triglycerides 157 mg/dL (2-149) H 03/24/22 00:47 Cholesterol 96 mg/dL (50-199) 03/24/22 00:47 LDL Cholesterol Direct 38 mg/dL (50-130) L 03/24/22 00:47 HDL Cholesterol 28 mg/dL (40-59) L 03/24/22 00:47 Cholesterol/HDL Ratio 3.42 % 03/24/22 00:47 TSH 2.970 mlU/mL (0.270-4.200) 03/24/22 00:47 Hep Bs Antigen Non-reactive (Negative) 03/24/22 00:47 Hep B Core IgM Ab Non-reactive (NonReactive) 03/24/22 00:47 Hepatitis C Antibody Non-reactive (NonReactive) 03/24/22 00:47 Last Vital Signs Temp 97.9 F 03/29/22 21:01 Pulse 65 03/29/22 21:03 Resp 18 03/29/22 21:01 BP 126/68 03/29/22 21:03 Pulse Ox 97 03/29/22 21:01
--- NOTE | 2022-03-30 09:56 | Discharge Summary ---
Providers - Providers Date of Admission: 03/23/22 23:48 Date of discharge: 03/30/22 Attending physician: TIESHA THOMAS MD 03/23/22 21:57 Consult to Physician [CONS] Routine Comment: Consulting Provider: LEEROY CORONA Physician Instructions: Reason For Exam: New psych admit Primary care physician: [employer] Hospitalization Reason for admission: suicidal ideation Admitting Diagnosis: F32.A - DEPRESSION, UNSPECIFIED Condition: Stable Hospital course: The patient was provided inpatient psychiatric treatment with safe and supportive environment, group/individual therapy, psychiatric medication, medication adjustment, adverse effect monitor, medical evaluation, medical treatment, social service assessment, social support meeting, placement assessment and psycho-education. The patients mood, cognition, behavior, motivation, compliance to treatment and appreciation on family/social support are improved and stabilized. At the time of discharge, the patient had no suicidal ideas, no homicidal ideas, no aggressive thoughts, no endangering behavior and no debilitating adverse effects. The patient agreed on the treatment plan, understood the risk, benefit, alternative treatment, potential consequence of no treatment, and gave informed consent. Progress Note: 03/30:The patient was seen today. He is resting quietly in bed. When asked how he was doing, he nodes his head as in okay. Per nurse, the patient had an uneventful night. No changes made today. 03/29:The patient was seen today. He states he is doing well. He continues to endorse depression but unable to rate. He denies any current suicidal/homicidal ideation and denies hallucinations. No changes made today. 03/28/: The patient was seen today with the nurse in the room. He states he is doing pretty good. He states sleep and appetite is good. The patient continues to endorse depression but he is unable to rate. He denies any current suicidal/homicidal ideation and denies hallucinations. Increased Abilify to 5mg po daily, started Trazodone 50mg po QHS. 03/27: The patient was seen today with the nurse in the room. He states he is doing ok. The patient has language barrier and delay in response. he denies being depressed. He initially states he is suicidal however, after repeated questioning he denies having suicidal ideation and denies hallucinations. No ch anges made today. 03/26:The patient was seen today. He is talking more today. He says he is ready to go home. I ask him how he feels he replies "good." He does verbalize feeling depressed but denies SI/HI or hallucinations. Will start Abilify to adjunct the lexapro for underlying depression. 03/25 The patient was seen today. He is calm and cooperative. He says he feels okay. The patient says he is hungry. He also verbalizes feeling depressed. He denies SI/HI. Attempted language line several times, kept asking me for account number after putting it in. Will attempt later. Disposition: 30 STILL A PATIENT Allergies/Adverse Reactions: Allergies No Known Allergies Allergy (Verified 03/24/22 00:00) Vital Signs: Last Vital Signs Temp 97.9 F 03/29/22 21:01 Pulse 65 03/29/22 21:03 Resp 18 03/29/22 21:01 BP 126/68 03/29/22 21:03 Pulse Ox 97 03/29/22 21:01 Last Lab: Laboratory Last Values WBC 7.2 K/mm3 (4.5-11.0) 03/26/22 13:03 RBC 3.19 M/mm3 (3.65-5.03) L 03/26/22 13:03 Hgb 9.6 gm/dl (11.8-15.2) L 03/26/22 13:03 Hct 29.5 % (35.5-45.6) L 03/26/22 13:03 MCV 92 fl (84-94) 03/26/22 13:03 MCH 30 pg (28-32) 03/26/22 13:03 MCHC 33 % (32-34) 03/26/22 13:03 RDW 13.4 % (13.2-15.2) 03/26/22 13:03 Plt Count 197 K/mm3 (140-440) 03/26/22 13:03 Lymph % (Auto) 16.5 % (13.4-35.0) 03/24/22 00:47 [place] % (Auto) 6.9 % (0.0-7.3) 03/24/22 00:47 Eos % (Auto) 4.9 % (0.0-4.3) H 03/24/22 00:47 Baso % (Auto) 0.6 % (0.0-1.8) 03/24/22 00:47 Lymph # (Auto) 1.5 K/mm3 (1.2-5.4) 03/24/22 00:47 [place] # (Auto) 0.6 K/mm3 (0.0-0.8) 03/24/22 00:47 Eos # (Auto) 0.4 K/mm3 (0.0-0.4) 03/24/22 00:47 Baso # (Auto) 0.1 K/mm3 (0.0-0.1) 03/24/22 00:47 Seg Neutrophils % 71.1 % (40.0-70.0) H 03/24/22 00:47 Seg Neutrophils # 6.5 K/mm3 (1.8-7.7) 03/24/22 00:47 Sodium 140 mmol/L (137-145) 03/24/22 00:47 Potassium 4.5 mmol/L (3.6-5.0) 03/24/22 00:47 Chloride 104.2 mmol/L (98-107) 03/24/22 00:47 Carbon Dioxide 19 mmol/L (22-30) L 03/24/22 00:47 Anion Gap 21 mmol/L 03/24/22 00:47 BUN 58 mg/dL (9-20) H 03/24/22 00:47 Creatinine 4.5 mg/dL (0.8-1.3) H 03/24/22 00:47 Estimated GFR 13 ml/min 03/24/22 00:47 BUN/Creatinine Ratio 13 % 03/24/22 00:47 Glucose 255 mg/dL (75-100) H 03/24/22 00:47 POC Glucose 125 mg/dL (70-105) H 03/30/22 09:06 Hemoglobin A1c 6.5 % (4-6) H 03/24/22 00:47 Calcium 8.1 mg/dL (8.4-10.2) L 03/24/22 00:47 Total Bilirubin 0.20 mg/dL (0.1-1.2) 03/24/22 00:47 AST 11 units/L (5-40) 03/24/22 00:47 ALT 8 units/L (7-56) 03/24/22 00:47 Alkaline Phosphatase 60 units/L (35-129) 03/24/22 00:47 Total Protein 5.5 g/dL (6.3-8.2) L 03/24/22 00:47 Albumin 3.2 g/dL (3.9-5) L 03/24/22 00:47 Albumin/Globulin Ratio 1.4 % 03/24/22 00:47 Triglycerides 157 mg/dL (2-149) H 03/24/22 00:47 Cholesterol 96 mg/dL (50-199) 03/24/22 00:47 LDL Cholesterol Direct 38 mg/dL (50-130) L 03/24/22 00:47 HDL Cholesterol 28 mg/dL (40-59) L 03/24/22 00:47 Cholesterol/HDL Ratio 3.42 % 03/24/22 00:47 TSH 2.970 mlU/mL (0.270-4.200) 03/24/22 00:47 Hep Bs Antigen Non-reactive (Negative) 03/24/22 00:47 Hep B Core IgM Ab Non-reactive (NonReactive) 03/24/22 00:47 Hepatitis C Antibody Non-reactive (NonReactive) 03/24/22 00:47 Core Measure Documentation - Palliative Care Palliative Care/ Comfort Measures: Not Applicable - Core Measures Any of the following diagnoses?: stroke - Stroke Discharge Requirements Statin for LDL = or >70 mg/dl on DC: Yes Anticoag for atrial fib/atrial flutter: No Reason for no anticoag for AF/F on DC: Not Indicated Antithrombotic for ischemic stroke: No Reason for no antithrombotic on DC: Not Indicated Exam - Constitutional Vitals: Temp Pulse Resp BP Pulse Ox 97.9 F 65 18 126/68 97 03/29/22 21:01 03/29/22 21:03 03/29/22 21:01 03/29/22 21:03 03/29/22 21:01 Plan Activity: advance as tolerated Weight Bearing Status: Weight Bear as Tolerated Durable Medical Equipment Needed Upon Discharge: Wheelchair Care Plan Goals: Maintain good and stable mental health. Plan of Treatment: The patient should be compliant with medications, not to use drugs and not to drink alcohol.The patient understands that if suicidal ideas, homicidal ideas, or any endangering thoughts/behavior arise, they should immediately seek for emergent assistance including but not limited to crisis hot line and emergency room. Follow up with outpatient Psychiatrist and PCP within 7 - 14 days of discharge. Follow up with: PRIMARY CARE,MD [Primary Care Provider] - 7 Days Prescriptions: traZODone [Desyrel] 50 mg PO QHS 30 Days #30 tablet ARIPiprazole 5 mg PO QDAY 30 Days #30 tablet Escitalopram [Lexapro] 20 mg PO DAILY 30 Days #30 tablet
--- NOTE | 2022-03-30 10:59 | Progress Note ---
Assessment and Plan Assessment and plan: Vascular dementia with behavior disturbance. Verbal prompting, verbal redirection, benzodiazepine therapy as clinically indicated. Cerebral atherosclerosis Antiplatelet therapy, risk factor reduction, supportive care. Continue Plavix Hypertension Monitor blood pressure every shift, continue medical management. Continue amlodipine, Cardura, metoprolol and clonidine Hyperlipidemia Diabetes mellitus type 2 Continue Lantus, SSRI and consistent carbohydrate diet General anxiety disorder Continue Lexapro. Psych following Major depressive disorder Continue Lexapro. Psych follow GERD Continue Protonix History Interval history: No new issues overnight Hospitalist Physical - Constitutional Vitals: Temp Pulse Resp BP Pulse Ox 97.9 F 65 18 126/68 97 03/29/22 21:01 03/29/22 21:03 03/29/22 21:01 03/29/22 21:03 03/29/22 21:01 General appearance: Present: no acute distress - EENT Eyes: Present: PERRL, EOM intact ENT: hearing intact, clear oral mucosa, dentition normal - Neck Neck: Present: supple, normal ROM - Respiratory Respiratory effort: normal Respiratory: bilateral: CTA - Cardiovascular Rhythm: regular Heart Sounds: Present: S1 & S2. Absent: gallop, rub - Extremities Extremities: no ischemia, No edema, Full ROM - Abdominal General gastrointestinal: soft, non-tender, non-distended, normal bowel sounds - Integumentary Integumentary: Present: clear, warm, dry - Neurologic Neurologic: CNII-XII intact, moves all extremities Results - Labs CBC & Chem 7: 03/26/22 13:03 03/24/22 00:47 Labs: Laboratory Last Values WBC 7.2 K/mm3 (4.5-11.0) 03/26/22 13:03 RBC 3.19 M/mm3 (3.65-5.03) L 03/26/22 13:03 Hgb 9.6 gm/dl (11.8-15.2) L 03/26/22 13:03 Hct 29.5 % (35.5-45.6) L 03/26/22 13:03 MCV 92 fl (84-94) 03/26/22 13:03 MCH 30 pg (28-32) 03/26/22 13:03 MCHC 33 % (32-34) 03/26/22 13:03 RDW 13.4 % (13.2-15.2) 03/26/22 13:03 Plt Count 197 K/mm3 (140-440) 03/26/22 13:03 Lymph % (Auto) 16.5 % (13.4-35.0) 03/24/22 00:47 [place] % (Auto) 6.9 % (0.0-7.3) 03/24/22 00:47 Eos % (Auto) 4.9 % (0.0-4.3) H 03/24/22 00:47 Baso % (Auto) 0.6 % (0.0-1.8) 03/24/22 00:47 Lymph # (Auto) 1.5 K/mm3 (1.2-5.4) 03/24/22 00:47 [place] # (Auto) 0.6 K/mm3 (0.0-0.8) 03/24/22 00:47 Eos # (Auto) 0.4 K/mm3 (0.0-0.4) 03/24/22 00:47 Baso # (Auto) 0.1 K/mm3 (0.0-0.1) 03/24/22 00:47 Seg Neutrophils % 71.1 % (40.0-70.0) H 03/24/22 00:47 Seg Neutrophils # 6.5 K/mm3 (1.8-7.7) 03/24/22 00:47 Sodium 140 mmol/L (137-145) 03/24/22 00:47 Potassium 4.5 mmol/L (3.6-5.0) 03/24/22 00:47 Chloride 104.2 mmol/L (98-107) 03/24/22 00:47 Carbon Dioxide 19 mmol/L (22-30) L 03/24/22 00:47 Anion Gap 21 mmol/L 03/24/22 00:47 BUN 58 mg/dL (9-20) H 03/24/22 00:47 Creatinine 4.5 mg/dL (0.8-1.3) H 03/24/22 00:47 Estimated GFR 13 ml/min 03/24/22 00:47 BUN/Creatinine Ratio 13 % 03/24/22 00:47 Glucose 255 mg/dL (75-100) H 03/24/22 00:47 POC Glucose 125 mg/dL (70-105) H 03/30/22 09:06 Hemoglobin A1c 6.5 % (4-6) H 03/24/22 00:47 Calcium 8.1 mg/dL (8.4-10.2) L 03/24/22 00:47 Total Bilirubin 0.20 mg/dL (0.1-1.2) 03/24/22 00:47 AST 11 units/L (5-40) 03/24/22 00:47 ALT 8 units/L (7-56) 03/24/22 00:47 Alkaline Phosphatase 60 units/L (35-129) 03/24/22 00:47 Total Protein 5.5 g/dL (6.3-8.2) L 03/24/22 00:47 Albumin 3.2 g/dL (3.9-5) L 03/24/22 00:47 Albumin/Globulin Ratio 1.4 % 03/24/22 00:47 Triglycerides 157 mg/dL (2-149) H 03/24/22 00:47 Cholesterol 96 mg/dL (50-199) 03/24/22 00:47 LDL Cholesterol Direct 38 mg/dL (50-130) L 03/24/22 00:47 HDL Cholesterol 28 mg/dL (40-59) L 03/24/22 00:47 Cholesterol/HDL Ratio 3.42 % 03/24/22 00:47 TSH 2.970 mlU/mL (0.270-4.200) 03/24/22 00:47 Hep Bs Antigen Non-reactive (Negative) 03/24/22 00:47 Hep B Core IgM Ab Non-reactive (NonReactive) 03/24/22 00:47 Hepatitis C Antibody Non-reactive (NonReactive) 03/24/22 00:47 [place]/IV: Voiding Method Incontinent Active Medications - Current Medications Current Medications: Generic Name Dose Route Start Last Admin Trade Name Freq PRN Reason Stop Dose Admin Acetaminophen 650 mg 03/24/22 14:00 Acetaminophen 325 Mg Tab PO Q4H PRN Pain, Moderate (4-6) Amlodipine Besylate 10 mg 03/24/22 10:00 03/29/22 10:20 Amlodipine 10 Mg Tab PO Not Given DAILY [facility] Aripiprazole 5 mg 03/28/22 10:00 03/29/22 10:19 Aripiprazole 5 Mg Tab PO 5 mg QDAY [facility] Administration Aspirin 81 mg 03/24/22 10:00 03/29/22 10:19 Aspirin Ec 81 Mg Tab PO 81 mg QDAY [facility] Administration Clonidine HCl 0.3 mg 03/28/22 17:55 03/28/22 17:55 Clonidine Tts 0.3 Mg/24 Hr Patch TD 0.3 mg Sa [facility]ERT[facility] Administration Clopidogrel Bisulfate 75 mg 03/24/22 10:00 03/29/22 10:19 Clopidogrel 75 Mg Tab PO 75 mg QDAY [facility] Administration Dextrose 50 ml 03/24/22 09:30 Dextrose 50% In Water (25gm) 50 Ml Syringe IV Q30MIN PRN Hypoglycemia Protocol Doxazosin Mesylate 4 mg 03/24/22 10:00 03/29/22 10:20 Doxazosin 4 Mg Tab PO Not Given QDAY [facility] Ergocalciferol 50,000 unit 03/25/22 10:00 03/25/22 10:28 Ergocalciferol (Vit D2) 50,000 Unit Cap PO 50,000 unit We [facility] Administration Escitalopram Oxalate 20 mg 03/24/22 14:00 03/29/22 10:19 Escitalopram 10 Mg Tab PO 20 mg DAILY [facility] Administration Hydralazine HCl 50 mg 03/24/22 14:00 03/29/22 21:03 Hydralazine 25 Mg Tab PO 50 mg TID [facility] Administration Insulin Glargine 22 units 03/24/22 22:00 03/29/22 21:37 Insulin Glargine 100 Units/Ml SUB-Q Not Given QHS [facility] Insulin Human Lispro 0 unit 03/24/22 11:30 03/29/22 21:30 Insulin Lispro 100 Unit/Ml SUB-Q Not Given ACHS [facility] Protocol Loperamide HCl 2 mg 03/24/22 14:00 Loperamide 2 Mg Cap PO Q6H PRN Diarrhea Magnesium Hydroxide 30 ml 03/24/22 09:00 Magnesium Hydroxide (Mom) Oral Liqd Udc PO DAILY PRN Constipation Metoprolol Succinate 50 mg 03/26/22 14:00 03/29/22 10:20 Metoprolol Succinate Xl 50 Mg Tab PO Not Given QDAY [facility] Ondansetron HCl 4 mg 03/24/22 09:00 Ondansetron 4 Mg Odt Tab PO Q8H PRN Nausea Pantoprazole Sodium 40 mg 03/24/22 10:00 03/29/22 08:09 Pantoprazole 40 Mg Tab PO 40 mg QDAC [facility] Administration Polyethylene Glycol 17 gm 03/24/22 10:00 03/29/22 10:21 Polyethylene Glycol 3350 17 Gm Powder PO 17 gm DAILY [facility] Administration Trazodone HCl 50 mg 03/28/22 22:00 03/29/22 21:03 Trazodone 50 Mg Tab PO 50 mg QHS [facility] Administration
[2022-03-30] MEDS: INSULIN LISPRO 100 UNIT/ML SUB-Q SCH ×4 (12:00→21:31)
[2022-03-30] MEDS: CLOPIDOGREL 75 MG TAB PO SCH (12:06)
[2022-03-30] MEDS: ASPIRIN EC 81 MG TAB PO SCH (12:06)
[2022-03-30] MEDS: PANTOPRAZOLE 40 MG TAB PO SCH (12:06)
[2022-03-30] MEDS: ESCITALOPRAM 10 MG TAB PO SCH (12:06)
[2022-03-30] MEDS: ARIPiprazole 5 MG TAB PO SCH (12:06)
[2022-03-30] MEDS: hydrALAZINE 25 MG TAB PO SCH ×3 (12:07→21:29)
[2022-03-30] MEDS: amLODIPine 10 MG TAB PO SCH (12:08)
[2022-03-30] MEDS: METOPROLOL SUCCINATE XL 50 MG TAB PO SCH (12:09)
[2022-03-30] MEDS: POLYETHYLENE GLYCOL 3350 17 GM POWDER PO SCH (12:09)
[2022-03-30] MEDS: DOXAZOSIN 4 MG TAB PO SCH (12:10)
[2022-03-30] MEDS: traZODone 50 MG TAB PO SCH (21:29)
[2022-03-30] MEDS: INSULIN GLARGINE 100 UNITS/ML SUB-Q SCH (21:30)
[2022-03-31] MEDS: INSULIN LISPRO 100 UNIT/ML SUB-Q SCH (08:00)
[2022-03-31] MEDS: POLYETHYLENE GLYCOL 3350 17 GM POWDER PO SCH (09:10)
[2022-03-31] MEDS: DOXAZOSIN 4 MG TAB PO SCH (09:10)
[2022-03-31] MEDS: PANTOPRAZOLE 40 MG TAB PO SCH (09:10)
[2022-03-31] MEDS: ESCITALOPRAM 10 MG TAB PO SCH (09:10)
[2022-03-31] MEDS: ARIPiprazole 5 MG TAB PO SCH (09:10)
[2022-03-31] MEDS: CLOPIDOGREL 75 MG TAB PO SCH (09:10)
[2022-03-31] MEDS: ASPIRIN EC 81 MG TAB PO SCH (09:10)
[2022-03-31 09:12] VITALS: BP 126/63
[2022-03-31] MEDS: METOPROLOL SUCCINATE XL 50 MG TAB PO SCH (09:23)
[2022-03-31] MEDS: hydrALAZINE 25 MG TAB PO SCH (09:23)
[2022-03-31] MEDS: amLODIPine 10 MG TAB PO SCH (09:24)
--- NOTE | 2022-03-31 14:23 | Event Note ---
Date: 03/31/22 Patient was discharged before my visit today.
== END 2022-03-31 09:25 | DRG 881 ==
LOC: 3A 17:59 → UNDOADMIN 17:59 → 5A 23:48
PROVIDERS: ADMIT Psychiatry & Neurology Psychiatry; ATTEND Psychiatry & Neurology Psychiatry
DX: F32.9 Major depressive disorder, single episode, unspecified (principal); R45.851 Suicidal ideations; F01.51 Vascular dementia, unspecified severity, with behavioral disturbance; I69.359 Hemiplegia and hemiparesis following cerebral infarction affecting unspecified side; I25.10 Atherosclerotic heart disease of native coronary artery without angina pectoris; E78.5 Hyperlipidemia, unspecified; I12.9 Hypertensive chronic kidney disease with stage 1 through stage 4 chronic kidney disease, or unspecified chronic kidney disease; E11.22 Type 2 diabetes mellitus with diabetic chronic kidney disease; N18.9 Chronic kidney disease, unspecified; Z79.82 Long term (current) use of aspirin; Z79.4 Long term (current) use of insulin; K21.9 Gastro-esophageal reflux disease without esophagitis; F41.1 Generalized anxiety disorder; I67.2 Cerebral atherosclerosis
CPT/HCPCS: 36415; 80053; 80061; 80074; 82962; 83036; 84443; 85025; 85027; G0378; Q9967; J1815